=== PATIENT | female | born 1945 | race Caucasian/White ===

== ENCOUNTER 2017-01-06 12:08 | Inpatient (IN) ==
[2017-01-06] MEDS ORDERED: SODIUM CHLORIDE 0.9% 1,000 ML IV STA (12:45)
[2017-01-06 12:50] LABS: Basophils % 0.3 % (0.0-0.8); Eosinophils # 0.1 10*3/uL (0.0-0.87); Eosinophils % 0.4 % (0.00-10.9); Hematocrit 29.6 VOL% (35.7-47.0); Hemoglobin 9.8 GM/DL (12.0-16.0); Immature Granulocytes % 0.3 %; Immature Granulocytes Absolute 0.03 #; Lymphocytes # 1.1 10*3/uL (1.4-4.0); Lymphocytes % 9.3 % (21.3-54.2); Mean Corpuscular HGB Conc 33.1 GM/DL (32-36); Mean Corpuscular Hemoglobin 31 PG (27-34); Mean Corpuscular Volume 92.2 FL (87-102); Mean Platelet Volume 13.4 FL (9.6-12.0); Monocytes # 1.3 10*3/uL (0.11-0.8); Monocytes % 11.8 % (1.7-12.7); Neutrophils # 8.9 10*3/uL (1.4-7.4); Neutrophils % 77.9 % (38.7-73.9); Platelet Count 115 T/CUMM (130-400); Red Blood Count 3.21 MC/CUMM (3.8-5.5); Red Cell Distribution Width 16.9 % (9.3-17.3); White Blood Count 11.4 T/CUMM (4-12)
--- NOTE | 2017-01-06 12:50 | Emergency Department Note ---
Nabor Meredith Mantricia, am scribing for, and in the presence of, James Flowers MD 12:47. Kristie Meredith James D, MD, personally performed the services described in this documentation, ascribed by Katelyn Tomlin in my presence, and it is both accurate and complete . Arrival - Arrival Chief Complaint: Weakness Stated Complaint: Weakness ED Nursing Triage Note: EMS was called for lifting help. Pt fell due to weakness. EMS reported initially hypotensive but responded with 700ml of NS. According to pt has not been eating and has been wearing prn O2 of 4L @ home constantly. FSG 116. Mode of Arrival: Stretcher Limitations: No Limitations Source: Patient - History of Present Illness HPI Narrative: Pt is a 71 y/o white female arriving to ED by EMS with c/o generalized weakness that onset today. Due to pt's weakness, she fell today trying to get out of bed. Pt denies any injuries or pain anywhere. Initially pt was also hypotensive but she was given 700ml of NS per EMS. Pt reports poor PO intake because she states that "the food does not go down." Pt is currently on prn O2 of 4L at home and when asked, she does not know why she is on home O2. Pt seems to be confused and is not aware what month it is; she responds with March. No other complaints were reported to ED. Onset (ago): hour(s) Consistency: constant Severity: mild Allergies/Adverse Reactions: Allergies Allergy/AdvReac Type Severity Reaction Status Date / Time morphine Allergy UNCONSCIOUS Verified 05/05/15 21:18 Home Medications: Home Medications Medication Instructions Recorded Confirmed Type Amitriptyline [Elavil] 100 mg PO BEDTIME 05/05/15 05/05/15 History Aspirin [Ecotrin] 81 mg PO DAILY 05/05/15 05/05/15 History Budesonide [Budesonide Neb] 1 mg RESP TX DAILY 05/05/15 05/05/15 History Enalapril Maleate 2.5 mg PO DAILY 05/05/15 05/05/15 History Tacrolimus Cap [Prograf Cap] 1 mg PO DAILY 05/05/15 05/05/15 History Acetaminophen Tab [Tylenol Tab] 650 mg PO BID #14 tablet 05/07/15 Rx Budesonide Neb [Pulmicort Respules] 0.5 mg RESP TX RT BID nebulizer 05/07/15 Rx solution traMADol TAB [Ultram] 50 mg PO BID #14 tablet 05/07/15 Rx HYDROcodone/ACETAMIN 7.5-325 1 tablet PO Q6H PRN #20 tablet 11/23/16 Rx [[place] 7.5-325] Review of System - Review of System 12 point system: reviewed and no additional remarkable complaints except as stated - Review of System Constitutional: Present: weakness Eyes: Absent: pain Head/Ears/Nose/Throat: Absent: earache Respiratory: Absent: cough Cardiovascular: Absent: chest pain, palpitations Gastrointestinal: Absent: abdominal pain, nausea, vomiting, diarrhea Genitourinary female: Absent: abnormal menses Musculoskeletal: Absent: arm pain, back pain, leg pain, neck pain Medical,Surgical,& Family Hx - Medical History Neurology: History of: Migraine (BOTOX INJECTIONS) HEENT: History of: Eye Problem (MACULAR DEGENERATION) Respiratory: History of: Asthma, COPD Renal: History of: Renal Problems (STAGE 3 KIDNEY DISEASE) Gastrointestinal: History of: Liver Problems (LIVER TRANSPLANT 1997) - Surgical History Thoracic Surgeries: Surgical HX of;: Organ Transplant (LIVER 1997) Neurologic Surgeries: Surgical HX of: Neurologic Surgery (STENT IN BRAIN) Abdominal Surgeries: Surgical HX of: Cholecystectomy - Family History Family History: Reports;: Family Heart Disease - Social History Smoking Status: Never smoker Frequency of Alcohol Use: None Type of Drug Use: None Exam Physical Examination: ADULT: GENERAL: This is a well-nourished, well-developed chronically ill-appearing white female in no apparent distress. VITAL SIGNS: Reviewed HEENT: Head is normocephalic and atraumatic. Pupils are equally round and reactive to light. Extraocular movement are intact. Oropharynx is benign with moist mucous membranes. NECK: Neck is soft and supple without tenderness. There are no masses. There is no lymphadenopathy. LUNGS: Lungs are clear to auscultation bilaterally. Chest rises symmetrically. There is no chest wall tenderness. CV: Heart is regular rate and rhythm without murmurs, rubs, or gallops. ABDOMEN: Abdomen is soft, non-tender to palpation. There are no abnormal masses palpated. There is no organomegaly. Bowel sounds are present and active. SKIN: Skin is warm and dry. No rash. EXTREMITIES: Patient has full range of motion without tenderness. There is no pedal edema. NEUROLOGIC: Awake, alert, and disoriented to time. Cranial nerves II through XII are grossly intact. Motor is 3/5 in all extremities. PSYCHIATRIC: Normal affect. Normal mood. Vital Signs: Vital Signs Temperature 98.4 F 01/06/17 12:08 Pulse Rate 86 01/06/17 12:08 Respiratory Rate 16 01/06/17 12:08 Blood Pressure 106/31 01/06/17 12:08 O2 Sat by Pulse Oximetry 96 01/06/17 12:08 Course - Consultations Consultation #1: Discussed with hospitalist. Patient will be admitted to their service. Time: 14:23 Procedures - ABG Interpretation ABG Interpretation 1 Interpretation: abnormal, metabolic acidosis Results - Labs CBC & BMP: 01/06/17 12:30 01/06/17 12:30 Lab Results: I have reviewed the patients labs Labs: Laboratory Tests 01/06/17 12:45 ABG pH 7.290 L ABG pCO2 32.3 L ABG pO2 109.0 H ABG HCO3 16.3 L ABG Total CO2 14.4 L ABG O2 Saturation 98.1 ABG Base Excess -10.2 L FiO2 28.00 - Diagnostic Findings Procedure: Chest x-ray: image reviewed by me, report reviewed by me (Right lower lobe infiltrate versus atelectasis.) Disposition Clinical Impression: Generalized weakness, Fall at home, Altered mental status, Right lower lobe infiltrate, Renal failure Case discussed with: patient Disposition: Still a Patient Condition: Stable Time of Disposition: 14:22
[2017-01-06 12:54] LABS: Allen Test Positive
[2017-01-06 12:55] LABS: ABG Base Excess -10.2 MMOL/L (-2.5-2.5); ABG HCO3 16.3 MMOL/L (20-26); ABG Oxygen Saturation 98.1 % (95-100); ABG PCO2 32.3 MM HG (35-48); ABG TCO2 14.4 MMOL/L (23-27)
--- NOTE | 2017-01-06 13:02 | CT Report ---
CT brain Indication: Altered mental status Comparison: 18 Oct 2013 Technique: Axial CT imaging of the brain is performed without contrast with 3 mm increments. Findings: No evidence of hemorrhage, mass mass effect midline shift or acute infarct seen. There is moderate diffuse cerebral atrophy. There are faint areas of decreased density seen within the white matter. Otherwise the brain parenchyma attenuation and differentiation appears within normal limits. Subarachnoid of shunt is present, stable in appearance. The ventricles and cisterns are normal in caliber. No cranial or skull base abnormality is identified. Impression: No evidence of acute process or interval change. This CT exam was performed using one or more the following dose reduction techniques: Automated exposure control, adjustment of the MA and/or KV according to patient size, or use of iterative reconstruction technique. PROCEDURE INTERPRETED AT [facility] DEPARTMENT OF RADIOLOGY Final Report Signed by: Dr. Abhijit Mayes
[2017-01-06 13:05] LABS: Calcium 8.4 MG/DL (8.5-10.1); Magnesium 2.3 MG/DL (1.8-2.4); Osmolality,Calculated 297.5 MOS/KG (273-304)
--- NOTE | 2017-01-06 13:05 | XRay Report ---
XR chest 2V Indication: Chronic respiratory failure, hypoxemia Comparison: 05 May 2015 Findings: The heart and mediastinum are normal in size and configuration. The pulmonary vascularity is normal in caliber. There is increased right lower lung density present. No other lung infiltrates, effusions, pneumothorax or other abnormality is demonstrated. Impression: Increased right lower lung density, could indicate infiltrates versus atelectasis. PROCEDURE INTERPRETED AT [facility] DEPARTMENT OF RADIOLOGY Final Report Signed by: Dr. Abhijit Mayes
[2017-01-06 13:08] LABS: Albumin 2.2 G/DL (3.4-5.0); Bilirubin,Total 0.8 MG/DL (0.2-1.0); Calcium 8.7 MG/DL (8.5-10.1); Osmolality,Calculated 297.5 MOS/KG (273-304); Total Protein 5.6 G/DL (6.4-8.3)
[2017-01-06 13:42] LABS: Amorphous Crystals,Urine Occasional /HPF (Few); Apearance,Urine CLOUDY (Clear); Bilirubin,Urine Negative (Negative); Blood, Urine Small mg/dL (Negative); Glucose,Urine (UA) Negative (Negative); Ketones,Urine Negative (Negative); Nitrite,Urine Negative (Negative); Protein,Urine Negative; RBC,Urine 1 /HPF (0-4); Squamous Epithelial Cell,Urine Occasional /HPF (0-10); Urine Color Amber (Yellow); Urine Specific Gravity 1.013 (1.001-1.035); Urine Urobilinogen < 2.0 EU/DL (0.2-1.0); WBC,Urine 2 /HPF (0-6)
[2017-01-06] MEDS ORDERED: LEVOFLOXACIN INJ 500 MG in PREMIX 1 EACH IV STA (14:23)
[2017-01-06] MEDS ORDERED: LEVOFLOXACIN INJ 100 ML IV ONE (14:53)
[2017-01-06] MEDS ORDERED: ALBUTEROL 2.5 MG/3 ML NEB RESP TX PRN (15:58)
[2017-01-06] MEDS ORDERED: ONDANSETRON 4 MG/2 ML VIAL IV PRN (15:58)
[2017-01-06] MEDS ORDERED: SODIUM CHLORIDE 0.9% 3,400 ML IV ONE (16:05)
--- NOTE | 2017-01-06 16:25 | Hospitalist History & Physical ---
Assessment and Plan (1) Altered mental status Status: Acute Assessment and plan: At the time of presentation, the patient was experiencing bouts of intermittent confusion. Her speech was clear and appropriate however she found difficulty answering questions at times. The is adamant that this is not the patient's baseline. CT of the head was essentially unremarkable; however the patient's ammonia level was noted at 39. This indeed may be the source of the patient's altered mental status in addition to the current state of metabolic disarrangement. We will monitor closely. Recheck ammonia level in a.m. Current Visit: Yes Qualifiers: Altered mental status type: unspecified Qualified Code(s): R41.82 - Altered mental status, unspecified (2) Fall at home Status: Acute Assessment and plan: The patient is obviously weak at the time of presentation. reported a decrease in the patient's p.o. intake in recent weeks; which is largely a contributing factor related to the patient's fall. We will consult physical and Occupational Therapy to evaluate and treat during the clinical encounter. Current Visit: Yes (3) Chronic renal failure, stage 3 (moderate) Status: Acute Assessment and plan: BUN and creatinine were grossly elevated at 72/4.20; GFR 13. Upon review of the patient's previous medical record, the patient's BUN and creatinine was noted at 29/1.30; GFR 51 on November 23, 2016. This may be largely in part to the patient's decrease in p.o. intake or could possibly be attributed to the recent increase in the patient's CellCept dose. We will gently rehydrate and recheck labs in a.m. If no improvement in renal function, we will consult nephrology to evaluate. Current Visit: No History of Present Illness Chief complaint: Weakness History of present illness: This is a chronically ill 71-year-old female that presented to the ED this afternoon at [facility] via EMS for evaluation of weakness. The patient has a long and complex medical history significant for: Macular degeneration, asthma, chronic obstructive pulmonary disease, chronic kidney disease stage III, and liver failure. Patient has surgical history significant for liver transplantation(1987), cholecystectomy, intracranial stent placement. The patient reported the onset of symptoms earlier this morning. The patient reports that she failed attempted to get out of bed. She was alone at home with her who was unable to assist her up. Her called for emergency assistance. At the time of EMS arrival, the patient was assessed and was found to be hypotensive. The patient was given 700 mL of normal saline in the field and transported to [facility] for further evaluation. The patient was assessed at the time of ED presentation. Upon further interview , the patient's reported that the patient has a a decrease in her p.o. intake in recent days. In addition, the patient is generally followed by a guard entrance registrar at [facility] in [place] who manages and monitors the patient's liver function. She reports that her medications were recently adjusted on last month. Labs were obtained; complete blood count reported white blood cell count of 11.4, hemoglobin 9.8, hematocrit 29.6, platelet count 115. Basic metabolic profile reported sodium 139, potassium 5.0, chloride 111, carbon dioxide 18, BUN 72, creatinine 4.20, calcium 8.7, magnesium 2.3, total bilirubin 0.80, AST 34, ALT 16, alkaline phosphatase 110, ammonia 39, albumin 2.2 and glucose at 94. Arterial blood gas reported pH at 7.290, PCO2 32.3, PO2 109, HCO3 16.3. Chest x-ray reported increased right lower lobe density which could indicate infiltrate versus atelectasis. CT head was essentially unremarkable. After brief discussion with both Dr. Flowers and Dr. Sagastume, the patient will be admitted to the hospitalist service for continuation of care. Due to the complexity of the patient's presenting symptoms and comorbidities, the patient will be placed in the critical care setting for close observation. Gastroenterology has been notified of the patient's arrival; Dr. Sagastume has spoken with Dr. Naqvi the patient is known to him. Dr. Naqvi has agreed to assist during the clinical encounter. Home medications have been reviewed and reconciled CODE STATUS discussed; patient is a FULL CODE. Home Medications Medication Instructions Recorded Confirmed Type Amitriptyline [Elavil] 100 mg PO QPM 05/05/15 01/06/17 History Aspirin [Ecotrin] 81 mg PO QAM 05/05/15 01/06/17 History Enalapril Maleate 2.5 mg PO QPM 05/05/15 01/06/17 History Tacrolimus Cap [Prograf Cap] 1 mg PO MOWEFR 05/05/15 01/06/17 History Budesonide Neb [Pulmicort Respules] 0.5 mg RESP TX RT BID nebulizer 05/07/15 Rx solution Albuterol Sulfate [Proair HFA] 2 puff INH Q4H PRN 01/06/17 01/06/17 History Albuterol/Ipratropium Neb [Duoneb] 3 ml RESP TX RT Q6H PRN 01/06/17 01/06/17 History Arformoterol Neb [Brovana] 15 mcg RESP TX RT BID 01/06/17 01/06/17 History Ergocalciferol (Vitamin D2) 50,000 unit PO Q3D 01/06/17 01/06/17 History [Vitamin D2] Furosemide Tab [Lasix Tab] 40 mg PO QPM 01/06/17 01/06/17 History Mycophenolate Mofetil Cap 500 mg PO BID 01/06/17 01/06/17 History [Cellcept] Allergies Allergy/AdvReac Type Severity Reaction Status Date / Time morphine Allergy UNCONSCIOUS Verified 05/05/15 21:18 Medical,Surgical,& Family Hx - Medical History Neurology: History of: Migraine (BOTOX INJECTIONS) HEENT: History of: Eye Problem (MACULAR DEGENERATION) Respiratory: History of: Asthma, COPD Renal: History of: Renal Problems (STAGE 3 KIDNEY DISEASE) Gastrointestinal: History of: Liver Problems (LIVER TRANSPLANT 1997) - Surgical History Thoracic Surgeries: Surgical HX of;: Organ Transplant (LIVER 1997) Neurologic Surgeries: Surgical HX of: Neurologic Surgery (STENT IN BRAIN) Abdominal Surgeries: Surgical HX of: Cholecystectomy - Family History Family History: Reports;: Family Heart Disease - Social History Smoking Status: Never smoker Frequency of Alcohol Use: None Type of Drug Use: None 12 point system: reviewed and no additional remarkable complaints except as stated Exam - Constitutional Vitals: Period Temp Pulse Resp BP Sys/Hallman Pulse Ox Last 24 Hr 98.4 F-98.4 F 86-92 16-21 89-118/31-79 96-100 General appearance: normal weight, mild distress - Head Head exam: Present: normal inspection, normocephalic - Eye Eye exam: Present: EOMI. Absent: conjunctival injection Pupils: Present: IRAM, normal accommodation. Absent: constricted - ENT ENT exam: Present: normal exam, normal external ear exam, normal oropharynx - Neck Neck exam: Absent: normal inspection, lymphadenopathy, meningismus, tenderness, thyromegaly - Respiratory Respiratory exam: Present: decreased breath sounds (Right side slightly diminished upon auscultation). Absent: rales, rhonchi, stridor, wheezes - Cardiovascular Cardiovascular exam: Present: bradycardia, regular rate and rhythm. Absent: carotid bruit, diastolic murmur, gallop, JVD, rubs, systolic murmur - GI/Abdominal GI/Abdominal exam: Present: normal bowel sounds, soft - Extremities Exam Extremities exam: Present: normal inspection, normal capillary refill, full ROM. Absent: edema - Back Exam Back exam: Present: normal inspection - Neurological Exam Neurological exam: Present: alert (Episodes of intermittent confusion noted however easily redirectable) - Psychiatric Psychiatric exam: Present: normal affect, normal mood - Skin Skin exam: Present: normal color, warm Results - Labs CBC & BMP: 01/06/17 12:30 01/06/17 12:30 Lab Results: I have reviewed the past 24 hour labs
[2017-01-06] MEDS ORDERED: VANCOMYCIN INJ 1,500 MG in SODIUM CHLORIDE 0.9% 500 ML IV ONE (18:00)
--- NOTE | 2017-01-06 19:00 | Event Note ---
Patient seen with history obtained from her and also patient's who is at bedside. Full consult follow tomorrow. 71-year-old female known to me with remote orthotopic liver transplant at [facility] around 20 years ago. She is admitted with marked weakness and increased shortness of breath with right lower lobe pneumonia. Her liver function appears normal other than albumin 2.2. Patient' s creatinine is 4.2, up from 3.[address] [facility] with Dr. Cool her transplant news clerk. Her Prograf dose had been decreased to 3 times a week from 1 mg daily due to renal dysfunction and CellCept was added. relates that she has had poor oral intake for the last few months. She had been hospitalized in [place] couple months ago with weakness and confusion with us not having those records as yet. Her also states that she has had difficulty swallowing solids recently. Would continue immunosuppressive therapy for her doses transplanted liver at current doses. Her nutritional status will need to be addressed and she may require nasogastric tube feeding. She probably will need EGD also at some point to evaluate her solid food dysphagia after pneumonia has cleared.
[2017-01-06] MEDS: ARFORMOTEROL 15 MCG/2 ML NEB RESP TX SCH (19:01)
[2017-01-06] MEDS: ALBUTEROL/IPRATROPIUM 3 ML NEB RESP TX SCH (19:01)
[2017-01-06] MEDS: BUDESONIDE 0.5 MG/2 ML NEB RESP TX SCH (19:01)
[2017-01-06] MEDS: SODIUM CHLORIDE 0.9% 1,000 ML IV SCH (19:15)
[2017-01-06] MEDS: PANTOPRAZOLE 40 MG VIAL IV SCH (19:16)
[2017-01-06] MEDS: MEROPENEM 500 MG in SODIUM CHLORIDE 0.9% 100 ML IV SCH (19:23)
[2017-01-06 20:01] LABS: INR 1.6; PT Patient Result 16.9 SECS; Partial Thromboplastin Time 34.9 SECS (0-40)
[2017-01-06] MEDS ORDERED: SODIUM CHLORIDE 0.9% 500 ML IV ONE (21:22)
[2017-01-06] MEDS: MYCOPHENOLATE MOFETIL 250 MG CAPSULE PO SCH (21:53)
[2017-01-06] MEDS: LACTULOSE 20 GM/30 ML UDCUP PO SCH (21:56)
[2017-01-06 22:39] LABS: CKMB % 1.5 %
[2017-01-06 22:42] LABS: Troponin I Only 0.063 NG/ML (0.00-0.045)
[2017-01-07] MEDS: ALBUTEROL/IPRATROPIUM 3 ML NEB RESP TX SCH ×4 (00:48→19:16)
[2017-01-07] MEDS ORDERED: SODIUM CHLORIDE 0.9% 500 ML IV ONE (02:18)
--- NOTE | 2017-01-07 02:20 | EKG Report ---
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
[2017-01-07] MEDS: NOREPINEPHRINE 8 MG in SODIUM CHLORIDE 0.9% 242 ML IV SCH (03:00)
[2017-01-07 03:20] LABS: Allen Test Positive; Pt O2 Delivery Device Room Air
[2017-01-07 03:22] LABS: ABG Base Excess -11.9 MMOL/L (-2.5-2.5); ABG HCO3 14.3 MMOL/L (20-26); ABG Oxygen Saturation 91.6 % (95-100); ABG PCO2 33.6 MM HG (35-48); ABG PH 7.247 (7.35-7.45); ABG TCO2 15.3 MMOL/L (23-27)
[2017-01-07 05:26] LABS: Bilirubin,Total 1.2 MG/DL (0.2-1.0); Calcium 8.7 MG/DL (8.5-10.1); Osmolality,Calculated 298.4 MOS/KG (273-304); Potassium 5.6 MMOL/L (3.5-5.1); Total Protein 5.7 G/DL (6.4-8.3)
[2017-01-07] MEDS: MEROPENEM 500 MG in SODIUM CHLORIDE 0.9% 100 ML IV SCH ×2 (05:44→17:38)
--- NOTE | 2017-01-07 06:24 | EKG Report ---
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
[2017-01-07] MEDS: SODIUM CHLORIDE 0.9% 1,000 ML IV SCH (06:39)
[2017-01-07 06:52] LABS: Basophils % 0.2 % (0.0-0.8); Eosinophils % 0.1 % (0.00-10.9); Hematocrit 28.6 VOL% (35.7-47.0); Hemoglobin 9.5 GM/DL (12.0-16.0); Immature Granulocytes % 0.6 %; Immature Granulocytes Absolute 0.08 #; Lymphocytes # 1.8 10*3/uL (1.4-4.0); Lymphocytes % 12.7 % (21.3-54.2); Mean Corpuscular HGB Conc 33.2 GM/DL (32-36); Mean Corpuscular Hemoglobin 32 PG (27-34); Mean Corpuscular Volume 94.7 FL (87-102); Mean Platelet Volume 12.6 FL (9.6-12.0); Monocytes # 1.8 10*3/uL (0.11-0.8); Monocytes % 12.8 % (1.7-12.7); Neutrophils # 10.5 10*3/uL (1.4-7.4); Neutrophils % 73.6 % (38.7-73.9); Platelet Count 117 T/CUMM (130-400); Red Blood Count 3.02 MC/CUMM (3.8-5.5); Red Cell Distribution Width 17.3 % (9.3-17.3); White Blood Count 14.2 T/CUMM (4-12)
--- NOTE | 2017-01-07 06:54 | XRay Report ---
Exam: XR chest 1V portable Date: 01/07/2017 4:00 AM Indication: Shortness of breath Comparison: 01/06/2017 Technical: AP Findings: A right IJ catheter is this appears to track inferiorly towards the inferior vena cava and coronal back upon itself into the region of the azygous system not otherwise clarified this could be along the chest wall as well could represent a ventriculoperitoneal shunt catheter not otherwise clarified on the AP chest. Low volume effusions are present. Prominent perihilar regions. Mild prominence the cardiac silhouette. External cardiac leads are noted. Impression: 1. Cardiomegaly with bilateral basal effusions and pleural thickening with minimal alveolar edema and shunt vascularity. Suggest cardiac decompensation mild CHF 2. Findings most likely represent a ventriculoperitoneal shunt catheter not otherwise clarified PROCEDURE INTERPRETED AT [facility] DEPARTMENT OF RADIOLOGY Final Report Signed by: Dr. Matthew Henry
[2017-01-07] MEDS ORDERED: VANCOMYCIN INJ 1,500 MG in SODIUM CHLORIDE 0.9% 500 ML IV PRN (07:39)
[2017-01-07] MEDS: BUDESONIDE 0.5 MG/2 ML NEB RESP TX SCH ×2 (07:50→19:16)
[2017-01-07] MEDS: ARFORMOTEROL 15 MCG/2 ML NEB RESP TX SCH ×2 (08:00→19:16)
--- NOTE | 2017-01-07 08:21 | Physician Query Form ---
CLICK EDIT DOCUMENT TO SELECT QUERY ANSWER --> OK --> SIGN Nella Elise RN, CCDS Certified Clinical Cash Applications Specialist W) [phone] (f) [phone] [email or web address] PROVIDERS: Make your selection(s) from the choices in EACH section by typing an "x" and enter comments in the comment section. Please use your independent medical judgment in providing your response. This request does not imply that any particular answer is desired or expected. CLINICAL INDICATORS: (Providers should not edit this section) The medical record indicates that the patient was admitted with pneumonia, encephalopathic, WBC 11.4, normal Lactic acid level, normal temp, pulse of 86 in the ER, Sepsis is mentioned on the . Please clarify which, if any, of the following is the etiology of the above symptoms and treatment rendered: ( x) Sepsis is a confirmed diagnosis (x) Please include indicators: __hypotension, immunosuppressed , hypoxic, encephalopathic ( ) Sepsis is ruled out: ( ) Localized infection only, without systemic illness, please specify infection : ( ) Other condition, please specify: ( ) Clinically unable to determine Criteria for Sepsis (SIRS due to an infection) should be based on 2 or more of the following being present: Temperature > 101F or < 96.8F WBC > 12,000 or < 4,000, or > 10% bands Tachycardia HR > 90 beats/minute Tachypnea RR > 20 breaths/minute or PaCO2 > 32mmHg Lactate level > 2.0 mmol/L (>4 is equivalent to severe sepsis) Altered Mental Status Mottling of skin or prolonged capillary refill Non-diabetic hyperglycemia (blood sugar >120 mg/dl) Other evidence of acute organ failure associated with sepsis ( severe sepsis) COMMENTS: PLEASE ALSO DOCUMENT RESPONSE IN PROGRESS NOTES AND/OR DISCHARGE SUMMARY Use of terms such as suspected, likely, or probable (associated with a specific diagnosis that is being evaluated, monitored, or treated as if it exists) are acceptable and can be restated in the discharge summary if not ruled out. MTDD
[2017-01-07] MEDS: LACTULOSE 20 GM/30 ML UDCUP PO SCH ×3 (09:09→21:33)
[2017-01-07] MEDS: ASPIRIN EC 81 MG TABLET PO SCH (09:09)
[2017-01-07] MEDS: TACROLIMUS 0.5 MG CAPSULE PO SCH (09:09)
[2017-01-07] MEDS: MYCOPHENOLATE MOFETIL 250 MG CAPSULE PO SCH ×2 (09:09→21:33)
[2017-01-07] MEDS: SODIUM BICARB INJ 100 MEQ in DEXTROSE 5% 1,000 ML IV SCH ×2 (09:52→20:43)
--- NOTE | 2017-01-07 10:04 | Gastrointestinal Consult Note ---
Assessment and Plan (1) Altered mental status Status: Acute Assessment and plan: 01/07-Sudden onset of confusion with history of liver disease and transplant 20 years ago. Mildly elevated ammonia level on admission at 39, down to 33, no bowel movements at this time. Reports of recent decline in oral intake over last several days. Reports of vague abdominal pain with eating. Continue to monitor oral intake at this time with consideration for possible tube feedings if necessary. Plan and addendum to follow by Dr Naqvi. Current Visit: Yes Qualifiers: Altered mental status type: unspecified Qualified Code(s): R41.82 - Altered mental status, unspecified History of Present Illness Chief complaint: Altered mental status, hx of liver transplant History of present illness: Ms. Castano is a 71 year old female who was admitted to the hospital on 01/06 with onset of mental status changes. She is a poor historian at this time and family is not present during visit. Pt has a prior history of COPD, CKD and liver failure. She underwent a liver transplant at [facility] 20 years ago. Information is obtained mostly from chart review. Pt is followed at [facility] by Dr Hilliard and noted to see him last week. Pt reportedly was admitted with changes in her baseline mental status on yesterday when she was unable to get up out of bed. EMS was called at that time and she was brought in for further evaluation. She was found to be hypotensive initially in the field and was IV resuscitated prior to arrival. On admission, pt was noted to have encephalopathy and hypoxic with metabolic acidosis as well as RLL pneumonia. Dr hCamberlain has consulted with pt and she has been started on Vancomycin and Merrem. Her ammonia level was at 39 on yesterday down today at 33 however she is not currently having bowel movements with the [place] [address]. Bilirubin 1.2, AST 62, alk phos 118. Albumin 2.0. Creatnine is unchanged today at 4.2. Pt spouse stated on admission that over the last several days, she has had a decrease in her oral intake with not eating or drinking very much. Her weight is noted to be up 15 pounds from last months ER visit at this time. Pt does not complain of any dysphagia currently however noted according to spouse she has had some complaints of this at home. She does states she has some generalized abdominal discomfort when she eats at times however she is somewhat confused when trying to explain her pain. She denies any nausea or vomiting and tolerated her diet this morning. Home Medications Medication Instructions Recorded Confirmed Type Amitriptyline [Elavil] 100 mg PO QPM 05/05/15 01/06/17 History Aspirin [Ecotrin] 81 mg PO QAM 05/05/15 01/06/17 History Enalapril Maleate 2.5 mg PO QPM 05/05/15 01/06/17 History Tacrolimus Cap [Prograf Cap] 1 mg PO MOWEFR 05/05/15 01/06/17 History Budesonide Neb [Pulmicort Respules] 0.5 mg RESP TX RT BID nebulizer 05/07/15 Rx solution Albuterol Sulfate [Proair HFA] 2 puff INH Q4H PRN 01/06/17 01/06/17 History Albuterol/Ipratropium Neb [Duoneb] 3 ml RESP TX RT Q6H PRN 01/06/17 01/06/17 History Arformoterol Neb [Brovana] 15 mcg RESP TX RT BID 01/06/17 01/06/17 History Ergocalciferol (Vitamin D2) 50,000 unit PO Q3D 01/06/17 01/06/17 History [Vitamin D2] Furosemide Tab [Lasix Tab] 40 mg PO QPM 01/06/17 01/06/17 History Mycophenolate Mofetil Cap 500 mg PO BID 01/06/17 01/06/17 History [Cellcept] Allergies Allergy/AdvReac Type Severity Reaction Status Date / Time morphine Allergy UNCONSCIOUS Verified 05/05/15 21:18 Medical,Surgical,& Family Hx - Medical History Neurology: History of: Migraine (BOTOX INJECTIONS) HEENT: History of: Eye Problem (MACULAR DEGENERATION) Respiratory: History of: Asthma, COPD Renal: History of: Renal Problems (STAGE 3 KIDNEY DISEASE) Gastrointestinal: History of: Liver Problems (LIVER TRANSPLANT 1997) - Surgical History Thoracic Surgeries: Surgical HX of;: Organ Transplant (LIVER 1997) Neurologic Surgeries: Surgical HX of: Neurologic Surgery (STENT IN BRAIN) Abdominal Surgeries: Surgical HX of: Cholecystectomy - Family History Family History: Reports;: Family Heart Disease - Social History Smoking Status: Never smoker Frequency of Alcohol Use: None Type of Drug Use: None 12 point system: reviewed and no additional remarkable complaints except as stated - Constitutional Constitutional: Present: as per HPI - EENT Eyes: Present: as per HPI Ears: Present: as per HPI Nose, mouth and throat: Present: as per HPI - Cardiovascular Cardiovascular: Present: as per HPI - Respiratory Respiratory: Present: as per HPI - Gastrointestinal Gastrointestinal: Present: as per HPI, abdominal pain - Genitourinary Genitourinary: Present: as per HPI - Musculoskeletal Musculoskeletal: Present: as per HPI - Neurological Neurological: Present: as per HPI, confusion - Psychiatric Psychiatric: Present: as per HPI - Endocrine Endocrine: Present: as per HPI - Hematologic/Lymphatic Hematologic/Lymphatic: Present: as per HPI Exam - Constitutional Vitals: Period Temp Pulse Resp BP Sys/Hallman Pulse Ox Last 24 Hr 97.9 F-98.7 F 74-104 16-28 78-144/31-83 92-100 General appearance: normal weight, no acute distress - Head Head exam: Present: normal inspection, normocephalic - Eye Eye exam: Present: other (lids and conjunctiva unremarkable). Absent: scleral icterus - ENT ENT exam: Present: normal exam, normal oropharynx - Neck Neck exam: Present: normal inspection - Respiratory Respiratory exam: Present: clear to auscultation bilaterally. Absent: rales, rhonchi, wheezes - Cardiovascular Cardiovascular exam: Present: regular rate and rhythm. Absent: diastolic murmur , JVD, systolic murmur - GI/Abdominal GI/Abdominal exam: Present: normal bowel sounds, soft. Absent: ascites, distended, mass, organomegaly, tenderness - Extremities Exam Extremities exam: Present: normal inspection, full ROM - Back Exam Back exam: Present: normal inspection - Neurological Exam Neurological exam: Present: alert, oriented X3 - Psychiatric Psychiatric exam: Present: normal affect, normal mood - Skin Skin exam: Present: normal color, warm, dry Results - Labs CBC & BMP: 01/07/17 03:42 01/07/17 03:42 Lab Results: I have reviewed the past 24 hour labs Quality Measures - VTE Contraindication to Pharmacological VTE Prophylaxis: Thrombocytopenia
--- NOTE | 2017-01-07 10:40 | Hospitalist Progress Note ---
Assessment and Plan (1) Right lower lobe pneumonia Status: Acute Assessment and plan: 1)RLL pneumonia- on vanc and merrem. Sats good and breathing comfortably. 2)sepsis- received IVF and BP ok on small amount of levophed. wean levophed off. BCx negative so far. 3)ALI on CKD stage 3- last outpatient creatinine was 3.3. 4)s/p liver failure with subsequent tranplant- may be develoing cirrhosis in new liver. ammonia remains mildly elevated. She is on lactulose. Her sensorium is clearer this morning. INR 1.6. On immunosuppressants as she was prior to admission. Dr Naqvi following. 5)fall at home- weak. 6)metabolic acidosis- adding bicarb to IVF, recheck BMP at 3pm. 7)COPD- compensated. Current Visit: Yes (2) History of liver transplant Status: Acute Current Visit: No (3) Chronic renal failure, stage 3 (moderate) Status: Acute Current Visit: No (4) Generalized weakness Status: Acute Current Visit: Yes (5) Fall at home Status: Acute Current Visit: Yes (6) Altered mental status Status: Acute Current Visit: Yes Qualifiers: Altered mental status type: unspecified Qualified Code(s): R41.82 - Altered mental status, unspecified (7) Renal failure Status: Acute Current Visit: Yes Hospitalist: Subjective Interval history: Mrs Castano did well last night she reports. Her BP dropped a bit and she was given about 2 more liters of IVF for total of 3.7 liters. levophed was started at 5mcg and has stayed at that rate with BP 116/80 this morning. She denies pain or shortness of breath at rest. No cough. ID to see today. Exam - Constitutional Vitals: Period Temp Pulse Resp BP Sys/Hallman Pulse Ox Last 24 Hr 97.8 F-98.7 F 74-104 16-28 78-144/31-83 92-100 General appearance: no acute distress, morbidly obese - Eye Eye exam: Present: EOMI. Absent: scleral icterus Pupils: Present: IRAM - Respiratory Respiratory exam: Present: rales (and decreased breath sounds at right base.). Absent: rhonchi, wheezes - Cardiovascular Cardiovascular exam: Present: regular rate and rhythm - GI/Abdominal GI/Abdominal exam: Present: normal bowel sounds, soft. Absent: tenderness - Extremities Exam Extremities exam: Present: edema (3+pitting edema bilateral LE) - Neurological Exam Neurological exam: Present: alert, oriented X3, CN II-XII intact. Absent: motor sensory deficit Results - Labs CBC & BMP: 01/07/17 03:42 01/07/17 03:42 Lab Results: I have reviewed the past 24 hour labs Quality Measures - VTE Contraindication to Pharmacological VTE Prophylaxis: Thrombocytopenia
--- NOTE | 2017-01-07 10:49 | Infectious Disease Consult ---
History of Present Illness Chief complaint: Sepsis History of present illness: History obtained from patient but mainly from the chart as she could not remember many details. Ms. Castano is a 71 year old female who had liver transplant about 19yrs ago and has been doing relatively well until a few mths ago when she became anorexic and has been falling frequently. She was brought to hospital yesterday after a fall when she was found confused. She was hypotensive and tachycardic though not febrile. She required multiple boluses of IV fluids blood pressure remained low after she came to the ICU so she was started on vasopressors. There was concern that she was septic so I am asked to assist with management. Patient denies cough, shortness of breath, vomiting and diarrhea but she has had abdominal pain is noticed and anorexia. No irritative urinary symptoms. No recent travel, she does not have any pets. No ill contacts. She lives at home with her . IMPRESSION: 1. RLL PNA - based on CXR appearance though she does not have significant pulmonary symptoms 2. Septic shock, due to #1. Is a possibility of bloodstream infection and blood cultures are pending. 3. Status post liver transplant almost 2 decades ago 4. Immunocompromise state due to #3 above 5. Acute renal failure, most likely due to persistent hypotension from septic shock RECOMMENDATIONS: 1. Continue meropenem 2. Would also continue vancomycin, next dose to be given when serum level gets below 20. Pharmacy has ordered random level for tomorrow morning. I am continuing vancomycin because her renal function has not worsened since it was started yesterday. Will stop if no resistant gram positives isolated in the cultures. 3. Would continue levofloxacin, therefore resume at 500 mg every 48 hours 4. Follow-up results of pending cultures and adjust antibiotics accordingly Thank you very much for the consult. Will follow. Home Medications Medication Instructions Recorded Confirmed Type Amitriptyline [Elavil] 100 mg PO QPM 05/05/15 01/06/17 History Aspirin [Ecotrin] 81 mg PO QAM 05/05/15 01/06/17 History Enalapril Maleate 2.5 mg PO QPM 05/05/15 01/06/17 History Tacrolimus Cap [Prograf Cap] 1 mg PO MOWEFR 05/05/15 01/06/17 History Budesonide Neb [Pulmicort Respules] 0.5 mg RESP TX RT BID nebulizer 05/07/15 Rx solution Albuterol Sulfate [Proair HFA] 2 puff INH Q4H PRN 01/06/17 01/06/17 History Albuterol/Ipratropium Neb [Duoneb] 3 ml RESP TX RT Q6H PRN 01/06/17 01/06/17 History Arformoterol Neb [Brovana] 15 mcg RESP TX RT BID 01/06/17 01/06/17 History Ergocalciferol (Vitamin D2) 50,000 unit PO Q3D 01/06/17 01/06/17 History [Vitamin D2] Furosemide Tab [Lasix Tab] 40 mg PO QPM 01/06/17 01/06/17 History Mycophenolate Mofetil Cap 500 mg PO BID 01/06/17 01/06/17 History [Cellcept] Allergies Allergy/AdvReac Type Severity Reaction Status Date / Time morphine Allergy UNCONSCIOUS Verified 05/05/15 21:18 12 point system: reviewed and no additional remarkable complaints except as stated (per HPI) Medical,Surgical,& Family Hx - Medical History Neurology: History of: Migraine (BOTOX INJECTIONS) HEENT: History of: Eye Problem (MACULAR DEGENERATION) Respiratory: History of: Asthma, COPD Renal: History of: Renal Problems (STAGE 3 KIDNEY DISEASE) Gastrointestinal: History of: Liver Problems (LIVER TRANSPLANT 1997) - Surgical History Thoracic Surgeries: Surgical HX of;: Organ Transplant (LIVER 1997) Neurologic Surgeries: Surgical HX of: Neurologic Surgery (STENT IN BRAIN) Abdominal Surgeries: Surgical HX of: Cholecystectomy - Family History Family History: Reports;: Family Heart Disease - Social History Smoking Status: Never smoker Frequency of Alcohol Use: None Type of Drug Use: None Infectious Disease Exam H&P - Constitutional Vitals: Vital Signs Temp Pulse Resp BP Pulse Ox 97.8 F 94 H 20 120/70 94 L 01/07/17 08:00 01/07/17 09:00 01/07/17 09:00 01/07/17 09:45 01/07/17 09:00 Intake and Output 01/06/17 01/07/17 01/07/17 23:59 07:59 15:59 Intake Total 200 / 200 2690 / 2690 400 / 400 Output Total 235 / 235 120 / 120 10 Balance -35 / -35 2570 / 2570 390 / 390 Intake: IV 200 / 200 2600 / 2600 300 / 300 Levaquin Inj 500 mg In 100 / 100 Premix 1 Each @ 100 mls/ hr IV 1X ED STA Rx#: [id number] Merrem 500 mg In Ns 100 100 / 100 100 / 100 ml @ 200 mls/hr IV Q12H GENEVA Rx#:[id number] Ns 1,000 ml @ 100 mls/hr 2000 / 2000 300 / 300 IV .Q10H GENEVA Rx#: [id number] Vancomycin Inj 1,000 mg 500 / 500 In Ns 500 ml @ 250 mls/hr IV ONCE ONE Rx#: [id number] Oral 50 / 50 100 / 100 Urinary Catheter Flush 40 / 40 Output: Urine 235 / 235 120 / 120 10 / 10 Other: Voiding Method Indwelling Catheter Indwelling Catheter # Bowel Movements 0 Weight 112.661 kg 117.027 kg Patient Weight 01/07/17 23:59 Weight 117.027 kg Exam: General: Patient appeared a bit malaised but was conversant, though unclear with details at times HEENT: Mucous membranes pink and moist, anicteric acyanotic, IRAM, no oral exudates Neck: Supple, no thyroid gland enlargement Respiratory system: Breath sounds vesicular, no crepitations or wheezes Cardiovascular: Normal S1 and S2, no murmurs appreciated Abdomen: Distended especially in epigastric area, large transplant scar noted horizontally across abd, normal bowel sounds, soft, mildly tender across upper abd in region of distention, possible mass in RUQ but difficult to clearly define due to obesity Genitourinary: No suprapubic pain or bladder distention, clear urine from Hoang catheter Extremities: mild bilateral LE edema Skin: No rash Reports - Labs CBC & BMP: 01/07/17 03:42 01/07/17 03:42 Labs: Laboratory Results - last 24 hr 01/06/17 01/06/17 01/06/17 12:30 12:30 12:30 WBC 11.4 RBC 3.21 L Hgb 9.8 L Hct 29.6 L MCV 92.2 MCH 31 MCHC 33.1 RDW 16.9 Plt Count 115 L MPV 13.4 H Neut % (Auto) 77.9 H Lymph % (Auto) 9.3 L Coles % (Auto) 11.8 Eos % (Auto) 0.4 Baso % (Auto) 0.3 Neut # (Auto) 8.9 H Lymph # (Auto) 1.1 L Coles # (Auto) 1.3 H Eos # (Auto) 0.1 Baso # (Auto) 0.0 Immature Gran % 0.3 Nucleated RBC % 0.0 Immature Gran # 0.03 Nucleated RBCs # 0.00 Immature Plt Fraction 0.0 INR PT Patient/Control Mix Fibrinogen Circ Anticoag PTT Plt Func Screen - ADP Plt Func Scrn - Epineph ABG pH ABG pCO2 ABG pO2 ABG HCO3 ABG Total CO2 ABG O2 Saturation ABG Base Excess FiO2 Sodium 139 139 Potassium 5.0 5.0 Chloride 110 H 111 H Carbon Dioxide 17 L 18 L Anion Gap 17.0 H 15.0 BUN 70 H 72 H Creatinine 4.30 H 4.20 H GFR Calculation 12 13 BUN/Creatinine Ratio 16.00 17.00 Glucose 93 94 Hemoglobin A1c Calculated Osmolality 297.5 297.5 Lactic Acid Calcium 8.4 L 8.7 Magnesium 2.3 Total Bilirubin 0.80 AST 34 ALT 16 Alkaline Phosphatase 110 Ammonia 39 H Total Creatine Kinase CK-MB (CK-2) CK and CKMB Interp Troponin I Total Protein 5.6 L Albumin 2.2 L Globulin 3.4 Albumin/Globulin Ratio 0.6 L Urine Color Urine Appearance Urine pH Ur Specific Orla Urine Protein Urine Glucose (UA) Urine Ketones Urine Blood Urine Nitrate Urine Bilirubin Urine Urobilinogen Urine Leukocytes Urine RBC Urine WBC Ur Squamous Epith Cells Amorphous Crystals Ur Culture Indicated? 01/06/17 01/06/17 01/06/17 12:30 12:36 12:45 WBC RBC Hgb Hct MCV MCH MCHC RDW Plt Count MPV Neut % (Auto) Lymph % (Auto) Coles % (Auto) Eos % (Auto) Baso % (Auto) Neut # (Auto) Lymph # (Auto) Coles # (Auto) Eos # (Auto) Baso # (Auto) Immature Gran % Nucleated RBC % Immature Gran # Nucleated RBCs # Immature Plt Fraction INR PT Patient/Control Mix Fibrinogen Circ Anticoag PTT Plt Func Screen - ADP Plt Func Scrn - Epineph ABG pH 7.290 L ABG pCO2 32.3 L ABG pO2 109.0 H ABG HCO3 16.3 L ABG Total CO2 14.4 L ABG O2 Saturation 98.1 ABG Base Excess -10.2 L FiO2 28.00 Sodium Potassium Chloride Carbon Dioxide Anion Gap BUN Creatinine GFR Calculation BUN/Creatinine Ratio Glucose Hemoglobin A1c 4.9 Calculated Osmolality Lactic Acid Calcium Magnesium Total Bilirubin AST ALT Alkaline Phosphatase Ammonia Total Creatine Kinase CK-MB (CK-2) CK and CKMB Interp Troponin I Total Protein Albumin Globulin Albumin/Globulin Ratio Urine Color Rica Urine Appearance Cloudy Urine pH 5.0 Ur Specific Orla 1.013 Urine Protein Negative Urine Glucose (UA) Negative Urine Ketones Negative Urine Blood Small Urine Nitrate Negative Urine Bilirubin Negative Urine Urobilinogen < 2.0 H Urine Leukocytes Negative Urine RBC 1 Urine WBC 2 Ur Squamous Epith Cells Occasional Amorphous Crystals Occasional Ur Culture Indicated? Not indicated 01/06/17 01/06/17 01/06/17 15:07 18:43 18:44 WBC RBC Hgb Hct MCV MCH MCHC RDW Plt Count 109 L MPV Neut % (Auto) Lymph % (Auto) Coles % (Auto) Eos % (Auto) Baso % (Auto) Neut # (Auto) Lymph # (Auto) Coles # (Auto) Eos # (Auto) Baso # (Auto) Immature Gran % Nucleated RBC % Immature Gran # Nucleated RBCs # Immature Plt Fraction INR PT Patient/Control Mix Fibrinogen Circ Anticoag PTT Plt Func Screen - ADP Plt Func Scrn - Epineph ABG pH ABG pCO2 ABG pO2 ABG HCO3 ABG Total CO2 ABG O2 Saturation ABG Base Excess FiO2 Sodium Potassium Chloride Carbon Dioxide Anion Gap BUN Creatinine GFR Calculation BUN/Creatinine Ratio Glucose Hemoglobin A1c Calculated Osmolality Lactic Acid 1.5 1.6 Calcium Magnesium Total Bilirubin AST ALT Alkaline Phosphatase Ammonia Total Creatine Kinase CK-MB (CK-2) CK and CKMB Interp Troponin I Total Protein Albumin Globulin Albumin/Globulin Ratio Urine Color Urine Appearance Urine pH Ur Specific Orla Urine Protein Urine Glucose (UA) Urine Ketones Urine Blood Urine Nitrate Urine Bilirubin Urine Urobilinogen Urine Leukocytes Urine RBC Urine WBC Ur Squamous Epith Cells Amorphous Crystals Ur Culture Indicated? 01/06/17 01/06/17 01/07/17 19:36 22:07 03:00 WBC RBC Hgb Hct MCV MCH MCHC RDW Plt Count MPV Neut % (Auto) Lymph % (Auto) Coles % (Auto) Eos % (Auto) Baso % (Auto) Neut # (Auto) Lymph # (Auto) Coles # (Auto) Eos # (Auto) Baso # (Auto) Immature Gran % Nucleated RBC % Immature Gran # Nucleated RBCs # Immature Plt Fraction INR 1.6 PT Patient/Control Mix 16.9 D Fibrinogen 84 L* Circ Anticoag PTT 34.9 Plt Func Screen - ADP 81 Plt Func Scrn - Epineph 185 H ABG pH 7.247 L ABG pCO2 33.6 L ABG pO2 66.0 L ABG HCO3 14.3 L ABG Total CO2 15.3 L ABG O2 Saturation 91.6 L ABG Base Excess -11.9 L FiO2 21.00 Sodium Potassium Chloride Carbon Dioxide Anion Gap BUN Creatinine GFR Calculation BUN/Creatinine Ratio Glucose Hemoglobin A1c Calculated Osmolality Lactic Acid Calcium Magnesium Total Bilirubin AST ALT Alkaline Phosphatase Ammonia Total Creatine Kinase 371 H CK-MB (CK-2) 5.4 H CK and CKMB Interp 1.5 Troponin I 0.063 H Total Protein Albumin Globulin Albumin/Globulin Ratio Urine Color Urine Appearance Urine pH Ur Specific Orla Urine Protein Urine Glucose (UA) Urine Ketones Urine Blood Urine Nitrate Urine Bilirubin Urine Urobilinogen Urine Leukocytes Urine RBC Urine WBC Ur Squamous Epith Cells Amorphous Crystals Ur Culture Indicated? 01/07/17 01/07/17 03:42 03:42 WBC 14.2 H RBC 3.02 L Hgb 9.5 L Hct 28.6 L MCV 94.7 MCH 32 MCHC 33.2 RDW 17.3 Plt Count 117 L MPV 12.6 H Neut % (Auto) 73.6 Lymph % (Auto) 12.7 L Coles % (Auto) 12.8 H Eos % (Auto) 0.1 Baso % (Auto) 0.2 Neut # (Auto) 10.5 H Lymph # (Auto) 1.8 Coles # (Auto) 1.8 H Eos # (Auto) 0.0 Baso # (Auto) 0.0 Immature Gran % 0.6 Nucleated RBC % 0.0 Immature Gran # 0.08 Nucleated RBCs # 0.00 Immature Plt Fraction 0.0 INR PT Patient/Control Mix Fibrinogen Circ Anticoag PTT Plt Func Screen - ADP Plt Func Scrn - Epineph ABG pH ABG pCO2 ABG pO2 ABG HCO3 ABG Total CO2 ABG O2 Saturation ABG Base Excess FiO2 Sodium 140 Potassium 5.6 H Chloride 113 H Carbon Dioxide 14 L Anion Gap 18.6 H BUN 71 H Creatinine 4.20 H GFR Calculation 13 BUN/Creatinine Ratio 16.00 Glucose 81 Hemoglobin A1c Calculated Osmolality 298.4 Lactic Acid Calcium 8.7 Magnesium Total Bilirubin 1.20 H AST 62 H ALT 17 Alkaline Phosphatase 118 H Ammonia 33 H Total Creatine Kinase CK-MB (CK-2) CK and CKMB Interp Troponin I Total Protein 5.7 L Albumin 2.0 L Globulin 3.7 H Albumin/Globulin Ratio 0.5 L Urine Color Urine Appearance Urine pH Ur Specific Orla Urine Protein Urine Glucose (UA) Urine Ketones Urine Blood Urine Nitrate Urine Bilirubin Urine Urobilinogen Urine Leukocytes Urine RBC Urine WBC Ur Squamous Epith Cells Amorphous Crystals Ur Culture Indicated? - Diagnostic Findings Procedure: Chest x-ray: image reviewed by me, report reviewed by me (opacity in Rt perihilar and basilar region)
[2017-01-07 11:08] LABS: INR 1.5; PT Patient Result 16.2 SECS
--- NOTE | 2017-01-07 12:14 | Nephrology Consult Note ---
History of Present Illness Chief complaint: CKD Stage 3-4 with ? arf component History of present illness: Ms. Castano is a 71 year old female with a history of liver transplant remotely. She takes low-dose Prograf having been told that Prograf caused her stage III chronic kidney disease. She also takes 500 mg of CellCept twice daily. She presented with hypotension and at least a month long history of anorexia. Creatinine is in the range of. She was dosed empirically with vancomycin and thus far has grown enterococcus from her urine which is not a resistant organism but blood cultures are pending. She is seen in the intensive care unit with her . He provides most of the history. Ms. Sanchez is sleepy throughout most of the visit but is easily arousable and pleasant. Chest is clear heart without rub or gallop. She does have considerable peripheral edema and her serum albumin is noted to be approximately 2. Impression chronic renal impairment with a question of acute worsening. 2 years ago here her creatinine was 2.2. She was hospitalized in [place] within the last 2 months and was told that she had abnormal kidney function at that time as well. Liver transplant. Metabolic acidosis Plan I would continue with bicarb to correct her metabolic acidosis. Hopefully she can come off vancomycin before long. Will follow renal function along with you. Home Medications Medication Instructions Recorded Confirmed Type Amitriptyline [Elavil] 100 mg PO QPM 05/05/15 01/06/17 History Aspirin [Ecotrin] 81 mg PO QAM 05/05/15 01/06/17 History Enalapril Maleate 2.5 mg PO QPM 05/05/15 01/06/17 History Tacrolimus Cap [Prograf Cap] 1 mg PO MOWEFR 05/05/15 01/06/17 History Budesonide Neb [Pulmicort Respules] 0.5 mg RESP TX RT BID nebulizer 05/07/15 Rx solution Albuterol Sulfate [Proair HFA] 2 puff INH Q4H PRN 01/06/17 01/06/17 History Albuterol/Ipratropium Neb [Duoneb] 3 ml RESP TX RT Q6H PRN 01/06/17 01/06/17 History Arformoterol Neb [Brovana] 15 mcg RESP TX RT BID 01/06/17 01/06/17 History Ergocalciferol (Vitamin D2) 50,000 unit PO Q3D 01/06/17 01/06/17 History [Vitamin D2] Furosemide Tab [Lasix Tab] 40 mg PO QPM 01/06/17 01/06/17 History Mycophenolate Mofetil Cap 500 mg PO BID 01/06/17 01/06/17 History [Cellcept] Allergies Allergy/AdvReac Type Severity Reaction Status Date / Time morphine Allergy UNCONSCIOUS Verified 05/05/15 21:18 Medical,Surgical,& Family Hx - Medical History Neurology: History of: Migraine (BOTOX INJECTIONS) HEENT: History of: Eye Problem (MACULAR DEGENERATION) Respiratory: History of: Asthma, COPD Renal: History of: Renal Problems (STAGE 3 KIDNEY DISEASE) Gastrointestinal: History of: Liver Problems (LIVER TRANSPLANT 1997) - Surgical History Thoracic Surgeries: Surgical HX of;: Organ Transplant (LIVER 1997) Neurologic Surgeries: Surgical HX of: Neurologic Surgery (STENT IN BRAIN) Abdominal Surgeries: Surgical HX of: Cholecystectomy - Family History Family History: Reports;: Family Heart Disease - Social History Smoking Status: Never smoker Frequency of Alcohol Use: None Type of Drug Use: None Review of Systems 12 point system: reviewed and no additional remarkable complaints except as stated Exam - Vital Signs Vital signs: Period Temp Pulse Resp BP Sys/Hallman Pulse Ox Last 24 Hr 97.8 F-98.7 F 74-104 16-28 78-144/39-83 92-100 - General Appearance General appearance: well-developed, well-nourished, appears started age Neck: no JVD, no thyromegaly, no carotid bruit, supple Respiratory: no kyphosis, no scoliosis Cardiology: no murmurs, no rub, no gallops, no edema, regular rate, regular rhythm, normal S1, normal S2 Gastrointestinal: normoactive bowel sounds Integumentary: no rash, warm and dry Neurologic: no focal deficit, no asterixis, alert and oriented x3, reflexes 2+ and symmetric, gait normal, strength 5/5 Musculoskeletal: no deformities, no erythema, no cyanosis, no clubbing Psychiatric: mood/affect appropriate (Edematous legs), cooperative Results - Labs CBC & BMP: 01/07/17 03:42 01/07/17 03:42 Assessment and Plan - Time spent with patient Time spent with patient: Greater than 30 minutes (1) Chronic renal failure, stage 3 (moderate) Status: Acute Assessment and plan: with ? acute worsening Current Visit: No (2) Metabolic acidosis Status: Acute Assessment and plan: Continue bicarb replacement Current Visit: Yes (3) UTI (urinary tract infection) Status: Acute Assessment and plan: growing Enterococcus Current Visit: No Specialty Discharge - Follow Up or Referrals - Speciality Discharge Instructions Nephrology Instructions: Bicarb as you're doing. Antibiotic. Hopefully can come off Vanc soon.
[2017-01-07] MEDS: PANTOPRAZOLE 40 MG VIAL IV SCH (15:25)
[2017-01-07 16:00] LABS: Calcium 8.3 MG/DL (8.5-10.1); Osmolality,Calculated 299.7 MOS/KG (273-304)
[2017-01-08] MEDS: ALBUTEROL/IPRATROPIUM 3 ML NEB RESP TX SCH ×4 (00:50→20:09)
[2017-01-08] MEDS: NOREPINEPHRINE 8 MG in SODIUM CHLORIDE 0.9% 242 ML IV SCH (05:49)
[2017-01-08] MEDS: MEROPENEM 500 MG in SODIUM CHLORIDE 0.9% 100 ML IV SCH ×2 (05:50→18:35)
[2017-01-08 06:34] LABS: Basophils % 0.2 % (0.0-0.8); Eosinophils # 0.4 10*3/uL (0.0-0.87); Eosinophils % 3.9 % (0.00-10.9); Hematocrit 26.8 VOL% (35.7-47.0); Hemoglobin 9.1 GM/DL (12.0-16.0); Immature Granulocytes % 0.4 %; Immature Granulocytes Absolute 0.05 #; Lymphocytes % 17.3 % (21.3-54.2); Mean Corpuscular Hemoglobin 32 PG (27-34); Mean Corpuscular Volume 92.7 FL (87-102); Mean Platelet Volume 12.5 FL (9.6-12.0); Monocytes # 1.7 10*3/uL (0.11-0.8); Monocytes % 15.3 % (1.7-12.7); NRBC # 0.02 10*3/uL; Neutrophils # 7.1 10*3/uL (1.4-7.4); Neutrophils % 62.9 % (38.7-73.9); Platelet Count 109 T/CUMM (130-400); Red Blood Count 2.89 MC/CUMM (3.8-5.5); Red Cell Distribution Width 17.2 % (9.3-17.3); White Blood Count 11.3 T/CUMM (4-12)
[2017-01-08 06:43] LABS: INR 1.5; PT Patient Result 16.6 SECS
[2017-01-08 07:14] LABS: Albumin 1.9 G/DL (3.4-5.0); Bilirubin,Total 0.6 MG/DL (0.2-1.0); Calcium 8.3 MG/DL (8.5-10.1); Osmolality,Calculated 296.8 MOS/KG (273-304); Potassium 4.8 MMOL/L (3.5-5.1); Total Protein 5.3 G/DL (6.4-8.3)
[2017-01-08] MEDS: BUDESONIDE 0.5 MG/2 ML NEB RESP TX SCH ×2 (07:37→20:09)
[2017-01-08] MEDS: ARFORMOTEROL 15 MCG/2 ML NEB RESP TX SCH ×2 (07:37→20:09)
[2017-01-08] MEDS: MYCOPHENOLATE MOFETIL 250 MG CAPSULE PO SCH ×2 (08:37→22:25)
[2017-01-08] MEDS: ASPIRIN EC 81 MG TABLET PO SCH (08:38)
[2017-01-08] MEDS: LACTULOSE 20 GM/30 ML UDCUP PO SCH ×3 (08:38→22:25)
[2017-01-08] MEDS: ERGOCALCIFEROL 50,000 UNIT CAPSULE PO SCH (08:38)
[2017-01-08] MEDS: SODIUM BICARB INJ 100 MEQ in DEXTROSE 5% 1,000 ML IV SCH ×2 (08:38→18:35)
[2017-01-08] MEDS ORDERED: VANCOMYCIN INJ 1,500 MG in SODIUM CHLORIDE 0.9% 500 ML IV ONE (09:00)
--- NOTE | 2017-01-08 09:11 | Hospitalist Progress Note ---
Assessment and Plan - Time spent with patient Time spent with patient: Greater than 30 minutes (1) Altered mental status Status: Acute Assessment and plan: On vancomycin, Levaquin and meropenem for management of pneumonia, renally dosed. Infectious disease following with antibiotic management. Nephrology following with renal failure, on IV bicarb. Monitor renal function Continue breathing treatment with DuoNeb every 6 hourly. Protonix for GI prophylaxis SCD hose for DVT prophylaxis because of mild thrombocytopenia Transfer to floor today. Current Visit: Yes Qualifiers: Altered mental status type: unspecified Qualified Code(s): R41.82 - Altered mental status, unspecified (2) Fall at home Status: Acute Current Visit: Yes (3) Generalized weakness Status: Acute Current Visit: Yes (4) Metabolic acidosis Status: Acute Current Visit: Yes (5) Renal failure Status: Acute Current Visit: Yes (6) Right lower lobe pneumonia Status: Acute Current Visit: Yes (7) History of COPD Status: Acute Current Visit: No (8) History of liver transplant Status: Acute Current Visit: No Hospitalist: Subjective Interval history: 71-year-old lady with history of liver transplant 2 decades ago and is immunosuppressive medication who was admitted for pneumonia with sepsis/septic shock and altered mental status, acute on chronic kidney injury. This is my first encounter with patient, per records she has been off pressors since the last 24 hours and has remained hemodynamically stable Mental status is back to baseline She is saturating well on nasal cannula oxygen. She tolerates some activity, able to get out of bed. She is tolerating some oral feeds is stable enough for transfer of the ICU. Exam - Constitutional Vitals: Period Temp Pulse Resp BP Sys/Hallman Pulse Ox Last 24 Hr 97.1 F-98.3 F 75-97 14-24 88-136/46-78 92-100 General appearance: no acute distress, morbidly obese - Head Head exam: Present: normal inspection, normocephalic, atraumatic - Eye Eye exam: Absent: periorbital swelling, scleral icterus Pupils: Present: IRAM - Respiratory Respiratory exam: Present: clear to auscultation bilaterally, rhonchi. Absent: accessory muscle use, stridor - Cardiovascular Cardiovascular exam: Present: irregular rhythm. Absent: JVD - GI/Abdominal GI/Abdominal exam: Present: normal bowel sounds, hernia, soft. Absent: tenderness, rebound - Extremities Exam Extremities exam: Present: edema - Neurological Exam Neurological exam: Present: alert, oriented X3 - Psychiatric Psychiatric exam: Present: normal affect - Skin Skin exam: Present: normal color, warm, dry Results - Labs CBC & BMP: 01/08/17 06:18 01/08/17 06:18 Lab Results: I have reviewed the past 24 hour labs Quality Measures - VTE Contraindication to Pharmacological VTE Prophylaxis: Thrombocytopenia
--- NOTE | 2017-01-08 10:25 | Nephrology Progress Note ---
Nephrology - PN: Subj Interval history: She is awake and alert. She denies shortness of breath. She has been oliguric. Exam (PN)-Nephrology - Vital Signs Vital signs: Period Temp Pulse Resp BP Sys/Hallman Pulse Ox Last 24 Hr 97.1 F-98.3 F 75-97 14-24 91-136/46-78 94-100 Exam: Gen.: Alert ENT: Pupils equal round reactive to light. EOMs intact. Mucous membranes moist. Neck: Supple. No JVD or bruit. Cardiovascular: Regular rate and rhythm. No murmur rub or gallop Lungs: Clear Abdomen: Soft. Nontender. Positive bowel sounds. No organomegaly Extremities: No edema - Lab 01/08/17 06:18 01/08/17 06:18 Most recent lab results ABG pH 7.247 (7.35-7.45) L 01/07/17 03:00 ABG pCO2 33.6 MM HG (35-48) L 01/07/17 03:00 ABG pO2 66.0 MM HG (80-95) L 01/07/17 03:00 ABG HCO3 14.3 MMOL/L (20-26) L 01/07/17 03:00 ABG O2 Saturation 91.6 % (95-100) L 01/07/17 03:00 Calcium 8.3 MG/DL (8.5-10.1) L 01/08/17 06:18 Magnesium 2.3 MG/DL (1.8-2.4) 01/06/17 12:30 Assessment and Plan (1) Chronic renal failure, stage 3 (moderate) Status: Acute Assessment and plan: 71-year-old woman with: * CRF 3 * Acute on chronic renal failure * metabolic acidosis. Improved with IV bicarb * UTI * Liver transplant Current Visit: No (2) Generalized weakness Status: Acute Current Visit: Yes (3) Metabolic acidosis Status: Acute Current Visit: Yes (4) History of liver transplant Status: Acute Current Visit: No (5) UTI (urinary tract infection) Status: Acute Current Visit: No
[2017-01-08] MEDS: LEVOFLOXACIN INJ 500 MG in PREMIX 1 EACH IV SCH (11:34)
[2017-01-08] MEDS: PANTOPRAZOLE 40 MG VIAL IV SCH (15:32)
[2017-01-09] MEDS: ALBUTEROL/IPRATROPIUM 3 ML NEB RESP TX SCH ×4 (00:28→19:15)
[2017-01-09] MEDS: MEROPENEM 500 MG in SODIUM CHLORIDE 0.9% 100 ML IV SCH ×2 (05:08→17:56)
[2017-01-09 05:50] LABS: Basophils % 0.2 % (0.0-0.8); Eosinophils # 0.4 10*3/uL (0.0-0.87); Eosinophils % 4.6 % (0.00-10.9); Hematocrit 25.2 VOL% (35.7-47.0); Hemoglobin 8.8 GM/DL (12.0-16.0); Immature Granulocytes % 0.3 %; Immature Granulocytes Absolute 0.03 #; Lymphocytes # 1.8 10*3/uL (1.4-4.0); Lymphocytes % 19.7 % (21.3-54.2); Mean Corpuscular HGB Conc 34.9 GM/DL (32-36); Mean Corpuscular Hemoglobin 31 PG (27-34); Mean Corpuscular Volume 89.7 FL (87-102); Mean Platelet Volume 13.2 FL (9.6-12.0); Monocytes # 1.3 10*3/uL (0.11-0.8); Monocytes % 14.2 % (1.7-12.7); NRBC # 0.02 10*3/uL; Neutrophils # 5.7 10*3/uL (1.4-7.4); Platelet Count 101 T/CUMM (130-400); Red Blood Count 2.81 MC/CUMM (3.8-5.5); Red Cell Distribution Width 16.5 % (9.3-17.3); White Blood Count 9.3 T/CUMM (4-12)
[2017-01-09 06:01] LABS: INR 1.6; PT Patient Result 17.1 SECS
[2017-01-09 06:30] LABS: Albumin 1.8 G/DL (3.4-5.0); Bilirubin,Total 1.1 MG/DL (0.2-1.0); Calcium 8.1 MG/DL (8.5-10.1); Potassium 4.7 MMOL/L (3.5-5.1)
[2017-01-09] MEDS: ARFORMOTEROL 15 MCG/2 ML NEB RESP TX SCH ×2 (07:32→19:15)
[2017-01-09] MEDS: BUDESONIDE 0.5 MG/2 ML NEB RESP TX SCH ×2 (07:33→19:15)
--- NOTE | 2017-01-09 09:00 | Hospitalist Progress Note ---
Assessment and Plan (1) Acute hepatic encephalopathy Status: Acute Assessment and plan: Impression: 1. Hepatic encephalopathy. She has a transplanted liver for unknown indication. She has evidence of hepatic decompensation with asterixis, vascular spiders, and abnormal liver tests, hypoalbuminemia, and prolonged INR 2. Chronic kidney disease with possible acute decompensation. This may be from her immunosuppressive's 3. 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 Possible pneumonia; chest x-ray findings look chronic to me 5. Possible bowel obstruction by examination Plan: X-ray of abdomen. Continue bicarbonate replacement. Follow kidney function, although it appears fairly stagnant. This note was completed using [employer] voice recognition software. There may be hearing officer errors as a result. Current Visit: Yes Hospitalist: Subjective Interval history: Follow-up mental status change, questionable pneumonia, liver transplant status , and chronic kidney disease. The patient was transferred out of the ICU yesterday. She appears to have hepatic encephalopathy. She underwent liver transplant about 20 years ago. She is still confused, and does not know why she had the transplant. She also apparently had a ventriculoperitoneal shunt placed around the same time, and does not know why she has that. She was admitted with pneumonia, but her chest x-ray findings all look chronic to me. After admission, she was found to have a metabolic acidosis. The etiology of this is not known. She is hyperchloremic and hyperkalemic, so this may be a type IV RTA. Exam - Constitutional Vitals: Period Temp Pulse Resp BP Sys/Hallman Pulse Ox Last 24 Hr 97.3 F-98.2 F 63-90 18-20 91-142/44-61 91-100 Vital signs are noted above. Heart is regular with a 3/6 holosystolic murmur at the apex. She has a few rhonchi in the chest. Abdomen is protuberant. She has a golf ball size mass in the right paramedian area that does not appear to be related to a prior incision. Bowel sounds are high-pitched and hyperactive. She is awake and conversant, but confused. She exhibits asterixis. She has a few vascular spiders on the anterior chest. Results - Labs CBC & BMP: 01/09/17 04:46 01/09/17 04:46 Lab Results: I have reviewed the past 24 hour labs Quality Measures - VTE Contraindication to Pharmacological VTE Prophylaxis: Thrombocytopenia
[2017-01-09] MEDS: MYCOPHENOLATE MOFETIL 250 MG CAPSULE PO SCH ×2 (09:13→21:19)
[2017-01-09] MEDS: SODIUM BICARB INJ 100 MEQ in DEXTROSE 5% 1,000 ML IV SCH ×2 (09:13→21:19)
[2017-01-09] MEDS: ASPIRIN EC 81 MG TABLET PO SCH (09:13)
[2017-01-09] MEDS: LACTULOSE 20 GM/30 ML UDCUP PO SCH ×3 (09:13→21:19)
--- NOTE | 2017-01-09 10:31 | XRay Report ---
XR KUB Indication: Abdominal distention. Comparison: None. Technique: Supine AP image of the abdomen was obtained. Findings: Lung bases are clear. There is no evidence of organomegaly. Bowel gas pattern is nonspecific in appearance. Nondistended gas-filled small and large bowel are present with gas noted within the rectum.. Renal contours are bilaterally symmetric. Bones and soft tissues demonstrate no significant abnormalities. Multiple surgical clips remain present within the region of the esophageal hiatus and right upper quadrant. Impression: 1. No specific abnormality of the bowel gas pattern is demonstrated. 01/09/2017 10:27 AM PROCEDURE INTERPRETED AT [facility] DEPARTMENT OF RADIOLOGY Final Report Signed by: Dr. Mohamud Elise
[2017-01-09] MEDS: PANTOPRAZOLE 40 MG VIAL IV SCH (16:39)
--- NOTE | 2017-01-09 21:36 | Nephrology Progress Note ---
Nephrology - PN: Subj Interval history: She denies shortness of breath. Urine output remains low Exam (PN)-Nephrology - Vital Signs Vital signs: Period Temp Pulse Resp BP Sys/Hallman Pulse Ox Last 24 Hr 98.0 F-98.4 F 78-92 18-20 98-118/44-58 89-100 Exam: Gen.: Alert and oriented x3. ENT: Pupils equal round reactive to light. EOMs intact. Mucous membranes moist. Neck: Supple. No JVD or bruit. Cardiovascular: Regular rate and rhythm. No murmur rub or gallop Lungs: Clear Abdomen: Soft. Nontender. Positive bowel sounds. No organomegaly Extremities: No edema - Lab 01/09/17 04:46 01/09/17 04:46 Most recent lab results ABG pH 7.247 (7.35-7.45) L 01/07/17 03:00 ABG pCO2 33.6 MM HG (35-48) L 01/07/17 03:00 ABG pO2 66.0 MM HG (80-95) L 01/07/17 03:00 ABG HCO3 14.3 MMOL/L (20-26) L 01/07/17 03:00 ABG O2 Saturation 91.6 % (95-100) L 01/07/17 03:00 Calcium 8.1 MG/DL (8.5-10.1) L 01/09/17 04:46 Magnesium 2.3 MG/DL (1.8-2.4) 01/06/17 12:30 Assessment and Plan (1) Chronic renal failure, stage 3 (moderate) Status: Acute Assessment and plan: 71-year-old woman with: * CRF 3 * Acute on chronic renal failure. Creatinine is unchanged. She remains oliguric * metabolic acidosis. Improved with IV bicarb * UTI * Liver transplant Current Visit: No (2) Generalized weakness Status: Acute Current Visit: Yes (3) Metabolic acidosis Status: Acute Current Visit: Yes (4) History of liver transplant Status: Acute Current Visit: No (5) UTI (urinary tract infection) Status: Acute Current Visit: No
[2017-01-10] MEDS: ALBUTEROL/IPRATROPIUM 3 ML NEB RESP TX SCH ×4 (00:01→19:38)
[2017-01-10] MEDS: SODIUM BICARB INJ 100 MEQ in DEXTROSE 5% 1,000 ML IV SCH ×3 (04:51→21:39)
[2017-01-10] MEDS: MEROPENEM 500 MG in SODIUM CHLORIDE 0.9% 100 ML IV SCH ×2 (06:00→18:25)
[2017-01-10 06:08] LABS: Basophils % 0.2 % (0.0-0.8); Eosinophils # 0.4 10*3/uL (0.0-0.87); Eosinophils % 4.2 % (0.00-10.9); Hematocrit 25.3 VOL% (35.7-47.0); Hemoglobin 8.9 GM/DL (12.0-16.0); Immature Granulocytes % 0.4 %; Immature Granulocytes Absolute 0.03 #; Lymphocytes # 1.8 10*3/uL (1.4-4.0); Lymphocytes % 21.8 % (21.3-54.2); Mean Corpuscular HGB Conc 35.2 GM/DL (32-36); Mean Corpuscular Hemoglobin 32 PG (27-34); Mean Corpuscular Volume 89.7 FL (87-102); Mean Platelet Volume 13.1 FL (9.6-12.0); Monocytes # 1.1 10*3/uL (0.11-0.8); Monocytes % 13.5 % (1.7-12.7); Neutrophils # 4.9 10*3/uL (1.4-7.4); Neutrophils % 59.9 % (38.7-73.9); Platelet Count 102 T/CUMM (130-400); Red Blood Count 2.82 MC/CUMM (3.8-5.5); Red Cell Distribution Width 16.5 % (9.3-17.3); White Blood Count 8.3 T/CUMM (4-12)
[2017-01-10 06:23] LABS: INR 1.5; PT Patient Result 16.7 SECS
[2017-01-10 06:43] LABS: Albumin 1.8 G/DL (3.4-5.0); Bilirubin,Total 1.1 MG/DL (0.2-1.0); Calcium 8.2 MG/DL (8.5-10.1); Potassium 4.6 MMOL/L (3.5-5.1)
[2017-01-10] MEDS: ARFORMOTEROL 15 MCG/2 ML NEB RESP TX SCH ×2 (07:34→19:38)
[2017-01-10] MEDS: BUDESONIDE 0.5 MG/2 ML NEB RESP TX SCH ×2 (07:34→19:38)
--- NOTE | 2017-01-10 08:44 | Gastrointestinal Progress Note ---
Assessment and Plan (1) Altered mental status Status: Acute Assessment and plan: 01/10-patient with multiple bowel movements on yesterday, no ammonia level noted today. Fairly well oriented. Creatinine elevated at 4.8. Repeat ammonia level today. Poor oral intake. Further plan an addendum to follow by Dr. Naqvi 01/07-Sudden onset of confusion with history of liver disease and transplant 20 years ago. Mildly elevated ammonia level on admission at 39, down to 33, no bowel movements at this time. Reports of recent decline in oral intake over last several days. Reports of vague abdominal pain with eating. Continue to monitor oral intake at this time with consideration for possible tube feedings if necessary. Plan and addendum to follow by Dr Naqvi. Current Visit: Yes Qualifiers: Altered mental status type: unspecified Qualified Code(s): R41.82 - Altered mental status, unspecified Gastroenterology - PN: Subj Interval history: CC: Encephalopathy Patient is seen, awake and fairly well oriented with spouse at bedside. She is denies any pain or discomfort at this time however she appears somewhat unsettled. Patient's spouse states that she has had multiple bowel movements throughout yesterday and these have slowed off as of today. Her ammonia level on yesterday was noted to be elevated at 128 however has not been repeated today. Creatinine remains elevated as well at 4.8. Urine output is noted to be marginal at this time. INR is 1.5. Abdomen is soft, tympanic, nontender. She has been eating minimally with poor appetite at this time per spouse. KUB was done on yesterday due to abdominal distention with no acute findings noted at that time. ROS: Denies SOB or chest pain Exam (Progress Note) - Constitutional Vitals: Period Temp Pulse Resp BP Sys/Hallman Pulse Ox Last 24 Hr 97.4 F-98.4 F 74-91 18-20 101-118/53-64 89-100 General appearance: normal weight, no acute distress - Head Head exam: Present: normal inspection, normocephalic - Eye Eye exam: Present: other (Lids and conjunctive are normal). Absent: scleral icterus - ENT ENT exam: Present: normal exam, normal oropharynx - Neck Neck exam: Present: normal inspection - Respiratory Respiratory exam: Present: clear to auscultation bilaterally. Absent: rales, rhonchi, wheezes - Cardiovascular Cardiovascular exam: Present: regular rate and rhythm. Absent: diastolic murmur , JVD, systolic murmur - GI/Abdominal GI/Abdominal exam: Present: normal bowel sounds, distended, soft. Absent: ascites, mass, organomegaly, tenderness - Extremities Exam Extremities exam: Present: normal inspection, full ROM - Back Exam Back exam: Present: normal inspection - Neurological Exam Neurological exam: Present: alert, oriented X3 - Psychiatric Psychiatric exam: Present: normal affect, normal mood - Skin Skin exam: Present: normal color, warm, dry Results - Labs CBC & BMP: 01/10/17 04:55 01/10/17 04:55 Lab Results: I have reviewed the past 24 hour labs
[2017-01-10] MEDS: ASPIRIN EC 81 MG TABLET PO SCH (09:13)
[2017-01-10] MEDS: MYCOPHENOLATE MOFETIL 250 MG CAPSULE PO SCH ×2 (09:13→20:37)
[2017-01-10] MEDS: LACTULOSE 20 GM/30 ML UDCUP PO SCH ×3 (09:13→20:37)
[2017-01-10] MEDS: TACROLIMUS 0.5 MG CAPSULE PO SCH (09:13)
--- NOTE | 2017-01-10 09:46 | Nephrology Progress Note ---
Nephrology - PN: Subj Interval history: Ms. Sanchez is seen in follow-up of her acute superimposed on chronic renal impairment. Her serum creatinine is up to 4.8 from 4.2 on Tuesday. Her metabolic acidosis has been corrected with a serum bicarbonate of 22. She continues to have significant edema and is oliguric. Will check urine studies and will discontinue vancomycin since cultures thus far been negative and he would be good to discontinue that if not absolutely necessary. She is breathing comfortably she is easily arousable and is friendly. Serum ammonia remains elevated. Exam (PN)-Nephrology - Vital Signs Vital signs: Period Temp Pulse Resp BP Sys/Hallman Pulse Ox Last 24 Hr 97.4 F-98.4 F 74-91 18-20 101-118/53-64 89-100 - Lab 01/10/17 04:55 01/10/17 04:55 Most recent lab results ABG pH 7.247 (7.35-7.45) L 01/07/17 03:00 ABG pCO2 33.6 MM HG (35-48) L 01/07/17 03:00 ABG pO2 66.0 MM HG (80-95) L 01/07/17 03:00 ABG HCO3 14.3 MMOL/L (20-26) L 01/07/17 03:00 ABG O2 Saturation 91.6 % (95-100) L 01/07/17 03:00 Calcium 8.2 MG/DL (8.5-10.1) L 01/10/17 04:55 Magnesium 2.3 MG/DL (1.8-2.4) 01/06/17 12:30 Assessment and Plan (1) Chronic renal failure, stage 3 (moderate) Status: Acute Assessment and plan: with ? acute worsening Current Visit: No (2) Metabolic acidosis Status: Acute Assessment and plan: Continue bicarb replacement Current Visit: Yes (3) UTI (urinary tract infection) Status: Acute Assessment and plan: growing Enterococcus Current Visit: No
[2017-01-10] MEDS: LEVOFLOXACIN INJ 500 MG in PREMIX 1 EACH IV SCH (11:42)
--- NOTE | 2017-01-10 12:26 | Infectious Disease Progress ---
Assessment and Plan (1) Altered mental status Status: Acute Assessment and plan: Probably from hepatic encephalopathy. She is pending transferred to [facility] for further evaluation based on her transplanted liver. Current Visit: Yes Qualifiers: Altered mental status type: unspecified Qualified Code(s): R41.82 - Altered mental status, unspecified (2) Renal failure Status: Acute Assessment and plan: Commensurately worse. Vancomycin has been stopped today. Current Visit: Yes (3) Right lower lobe pneumonia Status: Acute Assessment and plan: Not very symptomatic. She has been on broad-spectrum antibiotics and and I would complete 5 days empiric course of the meropenem and levofloxacin. Discussed with at bedside Discussed with Dr. Sagastume Current Visit: Yes Infectious Disease - PN: Subj Interval history: Patient much better than last week, particularly when terms of her mental status which has been a bit depressed. [place] due to elevated ammonia levels. She has not any fever. She has been out of ICU since a few days ago. She has been accepted to [facility] today. Infectious Disease Exam (PN) - Constitutional Vitals: Temp Pulse Resp BP Pulse Ox 97.6 F 86 18 109/61 89 L 01/10/17 08:00 01/10/17 08:00 01/10/17 08:58 01/10/17 08:00 01/10/17 08:00 General appearance: normal weight, no acute distress Exam: General appearance: Rather drowsy though she is arousable, seemed to be confused was not really communicating spontaneously - Eye Eye exam: Present: EOMI. no icterus Pupils: Present: IRAM - ENT ENT exam: no oral exudates - Respiratory Respiratory exam: vesicular BS, no crepitations or wheezes - Cardiovascular Cardiovascular exam: regular rate and rhythm, no murmurs - GI/Abdominal GI/Abdominal exam: normal bowel sounds, soft, non-tender, no organomegaly or mass - Extremities Exam Extremities exam: Bilateral lower extremity edema - Skin Skin exam: no rash Results - Labs CBC & BMP: 01/10/17 04:55 01/10/17 04:55 Lab Results: I have reviewed the past 24 hour labs (Blood cultures negative at day 3, urine cultures were also negative) Quality Measures - VTE Contraindication to Pharmacological VTE Prophylaxis: Thrombocytopenia
--- NOTE | 2017-01-10 13:42 | Discharge Summary ---
Hospital Course - Hospital Course Hospital Course: Mrs Castano presented with fever, tachycardia, PATY on CKD, and elevated ammonia with lactic acid over 2 and hypotension with RLL pneumonia. She was treated for sepsis with IVF resuscitation and required levophed for a short time. She has been oout of the ICU for several days but her renal failure and liver failure has gotten worse. She had transplant about 20 years ago and her bonding and composite fabricator thought she may be developing cirrhosis again. Her ammonia is 128, INR 1.5, albumin 1.8 today. She has asterixis. THis is despite routine lactulose during this admission. Her creatinine is now 4.8 and she has very little UOP. She has been afebrile. She was treated with broad spectrum antibiotics due to being immunosuppressed, but today her cultures remain negative so the Vanc will be stopped (random dosing based on levels) but will continue the levaquin and Merrem. She has been accepted to [facility]'s hepatology service by Dr Fonseca today and he expects them to have a bed today or tomorrow. I have discussed this with her . The patient is not able to sustain her attention long enough to participate in conversation today. - Time spent with patient Time with patient DS: Greater than 30 minutes (55 minutes to arrange transfer to [facility], medicine reconciliation, documentation) Diagnosis - Discharge Diagnosis (1) Right lower lobe pneumonia Status: Acute (2) History of liver transplant Status: Chronic (3) Chronic renal failure, stage 3 (moderate) Status: Chronic (4) Generalized weakness Status: Acute (5) Fall at home Status: Acute (6) Altered mental status Status: Acute (7) Renal failure Status: Acute (8) Immunosuppressed status Status: Acute (9) Hepatic encephalopathy Status: Acute Discharge Plan - Discharge Data Disposition: Disch/Xfer-[facility] Condition at Discharge: Guarded - Discharge Medications New Albuterol Neb [Proventil Neb] 2.5 mg RESP TX RT Q1H PRN PRN Reason: Shortness Of Breath/Wheezing Lactulose Liquid [Chronulac] 20 gm PO Q6H Meropenem [Merrem] 500 mg IV Q12H vial Mycophenolate Mofetil Cap [Cellcept] 500 mg PO BID capsule Pantoprazole Inj [Protonix Inj] 40 mg IV Q24H vial Rifaximin [Xifaxan] 225 mg PO TID tablet Sodium Bicarb Inj 100 meq IV .Q11H vial Levofloxacin Inj [Levaquin Inj] 500 mg IV Q48H Ondansetron Inj [Zofran Inj] 4 mg IV Q4H PRN vial PRN Reason: Nausea Continue Enalapril Maleate 2.5 mg PO QPM Tacrolimus Cap [Prograf Cap] 1 mg PO MOWEFR Aspirin [Ecotrin] 81 mg PO QAM Budesonide Neb [Pulmicort Respules] 0.5 mg RESP TX RT BID nebulizer solution Albuterol/Ipratropium Neb [Duoneb] 3 ml RESP TX RT Q6H PRN PRN Reason: Shortness Of Breath/Wheezing Arformoterol Neb [Brovana] 15 mcg RESP TX RT BID Ergocalciferol (Vitamin D2) [Vitamin D2] 50,000 unit PO Q3D Discontinued Amitriptyline [Elavil] 100 mg PO QPM Furosemide Tab [Lasix Tab] 40 mg PO QPM Albuterol Sulfate [Proair HFA] 2 puff INH Q4H PRN PRN Reason: Shortness Of Breath/Wheezing Mycophenolate Mofetil Cap [Cellcept] 500 mg PO BID - Follow Up or Referral - Forms/Instructions Exam - Constitutional Vitals: Period Temp Pulse Resp BP Sys/Hallman Pulse Ox Last 24 Hr 97.4 F-98.0 F 74-91 18-20 101-120/53-68 89-100 General appearance: mild distress, morbidly obese - Eye Eye exam: Present: EOMI. Absent: scleral icterus - Respiratory Respiratory exam: Present: clear to auscultation bilaterally - Cardiovascular Cardiovascular exam: Present: regular rate and rhythm - GI/Abdominal GI/Abdominal exam: Present: normal bowel sounds, distended, soft. Absent: tenderness - Extremities Exam Extremities exam: Present: edema (3+anasarca) - Neurological Exam Neurological exam: Present: altered, CN II-XII intact, other (responds to voice , but drifts back to sleep after she answers. Does not initiate conversation. asterixis present). Absent: motor sensory deficit - Skin Skin exam: Present: warm, dry Discharge Results Procedures and tests throughout hospitalization: Pending Orders 01/06/17 14:45 Blood Culture Stat 01/11/17 04:00 Comprehensive Metabolic Panel IN AM Tacrolimus (Prograf) IN AM Labs on day of discharge: Labs from last 24 hours 01/10/17 01/10/17 01/10/17 10:00 10:00 08:50 WBC RBC Hgb Hct MCV MCH MCHC RDW Plt Count MPV Neut % (Auto) Lymph % (Auto) [place] % (Auto) Eos % (Auto) Baso % (Auto) Neut # (Auto) Lymph # (Auto) [place] # (Auto) Eos # (Auto) Baso # (Auto) Immature Gran % Nucleated RBC % Immature Gran # Nucleated RBCs # Immature Plt Fraction INR PT Patient/Control Mix Sodium Potassium Chloride Carbon Dioxide Anion Gap BUN Creatinine GFR Calculation BUN/Creatinine Ratio Glucose Calculated Osmolality Calcium Total Bilirubin AST ALT Alkaline Phosphatase Ammonia 111 H Total Creatine Kinase CK-MB (CK-2) Troponin I Total Protein Albumin Globulin Albumin/Globulin Ratio Ur Random Creatinine 273 Ur Random Sodium 9.0 01/10/17 01/10/17 01/10/17 04:55 04:55 04:55 WBC 8.3 RBC 2.82 L Hgb 8.9 L Hct 25.3 L MCV 89.7 MCH 32 MCHC 35.2 RDW 16.5 Plt Count 102 L MPV 13.1 H Neut % (Auto) 59.9 Lymph % (Auto) 21.8 [place] % (Auto) 13.5 H Eos % (Auto) 4.2 Baso % (Auto) 0.2 Neut # (Auto) 4.9 Lymph # (Auto) 1.8 [place] # (Auto) 1.1 H Eos # (Auto) 0.4 Baso # (Auto) 0.0 Immature Gran % 0.4 Nucleated RBC % 0.0 Immature Gran # 0.03 Nucleated RBCs # 0.00 Immature Plt Fraction 0.0 INR PT Patient/Control Mix Sodium 136 Potassium 4.6 Chloride 104 Carbon Dioxide 22 Anion Gap 14.6 BUN 76 H Creatinine 4.80 H GFR Calculation 11 BUN/Creatinine Ratio 15.00 Glucose 120 H Calculated Osmolality 295.0 Calcium 8.2 L Total Bilirubin 1.10 H AST 69 H ALT 27 Alkaline Phosphatase 148 H Ammonia Total Creatine Kinase 64 D CK-MB (CK-2) 1.4 Troponin I 0.040 Total Protein 5.0 L Albumin 1.8 L Globulin 3.2 Albumin/Globulin Ratio 0.5 L Ur Random Creatinine Ur Random Sodium 01/10/17 04:55 WBC RBC Hgb Hct MCV MCH MCHC RDW Plt Count MPV Neut % (Auto) Lymph % (Auto) [place] % (Auto) Eos % (Auto) Baso % (Auto) Neut # (Auto) Lymph # (Auto) [place] # (Auto) Eos # (Auto) Baso # (Auto) Immature Gran % Nucleated RBC % Immature Gran # Nucleated RBCs # Immature Plt Fraction INR 1.5 PT Patient/Control Mix 16.7 Sodium Potassium Chloride Carbon Dioxide Anion Gap BUN Creatinine GFR Calculation BUN/Creatinine Ratio Glucose Calculated Osmolality Calcium Total Bilirubin AST ALT Alkaline Phosphatase Ammonia Total Creatine Kinase CK-MB (CK-2) Troponin I Total Protein Albumin Globulin Albumin/Globulin Ratio Ur Random Creatinine Ur Random Sodium Preliminary micro results at discharge 01/06/17 14:45 Blood Culture - Preliminary Blood No growth at 3 days 01/06/17 14:45 Blood Culture - Preliminary Blood No growth at 3 days DS: Provider Date of admission: 01/06/17 15:58 Primary care physician: . No PCP Attending physician on admission: Kasandra Sagastume MD Consults: 01/06/17 16:02 Consult to Physician [CONS] Routine Comment: liver transplant Consulting Provider: Matthew Naqvi 01/06/17 16:03 Consult to Physician [CONS] Routine Comment: Consulting Provider: Edmond Carroll Consulting Provider Notified: Yes Consult to Specialist Group: Nephrology When should Consulting Provider be notified: In am Person Notified: tracey Date Notified: 01/07/17 Time Notified: 08:25 Consult to Physician [CONS] Routine Comment: immunosuppressed, sepsis Consulting Provider: Cass Neville 01/07/17 07:00 Consult to Dietitian [CONS] Routine Reason for Dietitian: Other Consult Comment: NOT EATING WELL Discharging clinician: Kasandra Sagastume MD
[2017-01-10] MEDS ORDERED: RIFAXIMIN 550 MG TABLET PO SCH (15:00)
[2017-01-10] MEDS: PANTOPRAZOLE 40 MG VIAL IV SCH (17:06)
[2017-01-10] MEDS: RIFAXIMIN 550 MG TABLET PO SCH (20:36)
[2017-01-11] MEDS: ALBUTEROL/IPRATROPIUM 3 ML NEB RESP TX SCH ×2 (00:03→07:36)
[2017-01-11] MEDS: LACTULOSE 20 GM/30 ML UDCUP PO SCH ×2 (02:06→12:12)
[2017-01-11] MEDS: MEROPENEM 500 MG in SODIUM CHLORIDE 0.9% 100 ML IV SCH (05:40)
[2017-01-11 07:28] LABS: Albumin 1.7 G/DL (3.4-5.0); Bilirubin,Total 1.1 MG/DL (0.2-1.0); Calcium 7.9 MG/DL (8.5-10.1); Osmolality,Calculated 291.2 MOS/KG (273-304); Potassium 4.9 MMOL/L (3.5-5.1); Total Protein 5.3 G/DL (6.4-8.3)
[2017-01-11] MEDS: ARFORMOTEROL 15 MCG/2 ML NEB RESP TX SCH (07:34)
[2017-01-11] MEDS: BUDESONIDE 0.5 MG/2 ML NEB RESP TX SCH (07:36)
--- NOTE | 2017-01-11 08:49 | Gastrointestinal Progress Note ---
Assessment and Plan (1) Altered mental status Status: Acute Assessment and plan: 01/11-continued bowel movements, ammonia at 111. Creatinine unchanged. Continued poor intake. Transfer to [facility] pending at present time. Plan an addendum followed by Dr. Naqvi 01/10-patient with multiple bowel movements on yesterday, no ammonia level noted today. Fairly well oriented. Creatinine elevated at 4.8. Repeat ammonia level today. Poor oral intake. Further plan an addendum to follow by Dr. Naqvi 01/07-Sudden onset of confusion with history of liver disease and transplant 20 years ago. Mildly elevated ammonia level on admission at 39, down to 33, no bowel movements at this time. Reports of recent decline in oral intake over last several days. Reports of vague abdominal pain with eating. Continue to monitor oral intake at this time with consideration for possible tube feedings if necessary. Plan and addendum to follow by Dr Naqvi. Current Visit: Yes Qualifiers: Altered mental status type: unspecified Qualified Code(s): R41.82 - Altered mental status, unspecified Gastroenterology - PN: Subj Interval history: CC: Encephalopathy Patient is seen, little more awake and alert with spouse at bedside. She was up and down most of the night with bowel movements related to the lactulose. She denies any pain, nausea or vomiting at this time. She is noted to currently be waiting on a bed for transfer to [facility]. No word as of this morning regarding the timeframe for this. Creatinine remains elevated at 4.8. Ammonia was down slightly at 111. Abdomen is soft, nontender. She continues with some mild asterixis. ROS: Denies shortness of breath or chest pain Exam (Progress Note) - Constitutional Vitals: Period Temp Pulse Resp BP Sys/Hallman Pulse Ox Last 24 Hr 97.7 F-98.9 F 83-95 16-22 118-130/57-76 90-99 - Other Additional findings: General appearance: normal weight, no acute distress - Head Head exam: Present: normal inspection, normocephalic - Eye Eye exam: Present: other (Lids and conjunctive are normal). Absent: scleral icterus - ENT ENT exam: Present: normal exam, normal oropharynx - Neck Neck exam: Present: normal inspection - Respiratory Respiratory exam: Present: clear to auscultation bilaterally. Absent: rales, rhonchi, wheezes - Cardiovascular Cardiovascular exam: Present: regular rate and rhythm. Absent: diastolic murmur , JVD, systolic murmur - GI/Abdominal GI/Abdominal exam: Present: normal bowel sounds, distended, soft. Absent: ascites, mass, organomegaly, tenderness - Extremities Exam Extremities exam: Present: normal inspection, full ROM - Back Exam Back exam: Present: normal inspection - Neurological Exam Neurological exam: Present: alert, oriented X3 - Psychiatric Psychiatric exam: Present: normal affect, normal mood - Skin Skin exam: Present: normal color, warm, dry Results - Labs CBC & BMP: 01/10/17 04:55 01/11/17 06:04 Lab Results: I have reviewed the past 24 hour labs
--- NOTE | 2017-01-11 09:39 | XRay Report ---
KUB. Indication: Nausea and vomiting. Comparison: January 09, 2017. The diaphragms are clipped from this exam. Surgical clips are noted in the upper abdomen. There is gaseous distention of small and large intestine, with gas extending to the rectum. This is most suggestive of an ileus. There are numerous calcifications in the left upper quadrant. These could lie within the urinary tract, or be within vasculature or represent calcified lymph nodes. There is a single calcification projecting over the right renal outline. The osseous structures are diffusely demineralized and degenerative changes are present. Impression: Worsening nonspecific gaseous distention of bowel, without definite evidence of obstruction. Limited study not including the diaphragms. Possible nephrolithiasis. PROCEDURE INTERPRETED AT [facility] DEPARTMENT OF RADIOLOGY Final Report Signed by: Dr. Pia Paz
--- NOTE | 2017-01-11 09:49 | Hospitalist Progress Note ---
Assessment and Plan (1) Right lower lobe pneumonia Status: Acute Assessment and plan: 1)RLL pneumonia- on vanc and merrem. Sats good and breathing comfortably. 2)sepsis- received IVF and BP ok on small amount of levophed. wean levophed off. BCx negative so far. 3)PATY on CKD stage 3- last outpatient creatinine was 3.3. Now creatinine 4.8 for second day, perhaps it has peaked and will begin to come down. 4)s/p liver failure with subsequent tranplant- may be developing cirrhosis in new liver. ammonia remains elevated, albumin low, ascites increase. Now with ileus on KUB, and no BM last night. VOmited the oral lactulose last night. Begin lactulose enemas. Place NGT. On immunosuppressants as she was prior to admission. Dr Naqvi following. 5)fall at home- weak. 6)metabolic acidosis- adding bicarb to IVF 7)COPD- compensated. 8)transfer to [facility] pending. Current Visit: Yes (2) History of liver transplant Status: Chronic Current Visit: No (3) Chronic renal failure, stage 3 (moderate) Status: Chronic Current Visit: No (4) Generalized weakness Status: Acute Current Visit: Yes (5) Fall at home Status: Acute Current Visit: Yes (6) Altered mental status Status: Acute Current Visit: Yes Qualifiers: Altered mental status type: unspecified Qualified Code(s): R41.82 - Altered mental status, unspecified (7) Renal failure Status: Acute Current Visit: Yes (8) Immunosuppressed status Status: Acute Current Visit: Yes (9) Hepatic encephalopathy Status: Acute Current Visit: Yes Hospitalist: Subjective Interval history: Patient not discharged yesterday bc we are waiting for bed availability at [facility]. She vomited last night. Denies pain or shortness of breath. KUB this am shows increased bowel distention. CXR with R effusion, prominent pulmonary vasculature by my reading. Place NGT to LIS. Begin lactulose enemas. No BMs last night, ammonia increasing. Exam - Constitutional Vitals: Period Temp Pulse Resp BP Sys/Hallman Pulse Ox Last 24 Hr 97.7 F-98.9 F 83-95 16-22 118-130/57-76 90-99 General appearance: no acute distress, morbidly obese - Eye Eye exam: Present: EOMI. Absent: scleral icterus - Respiratory Respiratory exam: Present: rales (a few rales at both bases) - Cardiovascular Cardiovascular exam: Present: regular rate and rhythm - GI/Abdominal GI/Abdominal exam: Present: distended, hypoactive bowel sounds. Absent: tenderness - Extremities Exam Extremities exam: Present: edema (unchanged 3+ dependent edema) - Neurological Exam Neurological exam: Present: alert. Absent: oriented X3 (asterixis) - Skin Skin exam: Present: warm, dry Results - Labs CBC & BMP: 01/10/17 04:55 01/11/17 06:04 Lab Results: I have reviewed the past 24 hour labs Quality Measures - VTE Contraindication to Pharmacological VTE Prophylaxis: Thrombocytopenia
[2017-01-11] MEDS: SODIUM BICARB INJ 100 MEQ in DEXTROSE 5% 1,000 ML IV SCH ×2 (10:54→12:52)
[2017-01-11] MEDS: ERGOCALCIFEROL 50,000 UNIT CAPSULE PO SCH (10:54)
[2017-01-11] MEDS: MYCOPHENOLATE MOFETIL 250 MG CAPSULE PO SCH (10:54)
[2017-01-11] MEDS: ASPIRIN EC 81 MG TABLET PO SCH (10:54)
[2017-01-11] MEDS: RIFAXIMIN 550 MG TABLET PO SCH (10:54)
[2017-01-11 11:13] VITALS: BP 124/66
--- NOTE | 2017-01-11 11:49 | XRay Report ---
XR chest 1V portable Indication: NG tube placement Comparison: No relevant comparison. Technique: Frontal view of the chest and upper abdomen specifically for enteric tube placement. Findings: Nonweighted enteric tube tip projects over the mid stomach. IMPRESSION: As above. PROCEDURE INTERPRETED AT [facility] DEPARTMENT OF RADIOLOGY Final Report Signed by: Dr Mark Green
--- NOTE | 2017-01-11 11:56 | Nephrology Progress Note ---
Nephrology - PN: Subj Interval history: Ms. Sanchez is seen in follow-up of her acute renal failure superimposed on chronic renal failure. Her creatinine today is stable at 4.8 electrolytes are unremarkable with a measured bicarb of 24. Plans are underway for transfer to [facility]. Her urine sodium yesterday was 9 compatible with hepatorenal syndrome or prerenal picture. She is not volume depleted. Agree with transfer and thanks for allowing us to participate in her care. Exam (PN)-Nephrology - Vital Signs Vital signs: Period Temp Pulse Resp BP Sys/Hallman Pulse Ox Last 24 Hr 97.7 F-98.9 F 83-95 16-22 118-130/57-76 90-99 - Lab 01/10/17 04:55 01/11/17 06:04 Most recent lab results ABG pH 7.247 (7.35-7.45) L 01/07/17 03:00 ABG pCO2 33.6 MM HG (35-48) L 01/07/17 03:00 ABG pO2 66.0 MM HG (80-95) L 01/07/17 03:00 ABG HCO3 14.3 MMOL/L (20-26) L 01/07/17 03:00 ABG O2 Saturation 91.6 % (95-100) L 01/07/17 03:00 Calcium 7.9 MG/DL (8.5-10.1) L 01/11/17 06:04 Magnesium 2.3 MG/DL (1.8-2.4) 01/06/17 12:30 Assessment and Plan (1) Chronic renal failure, stage 3 (moderate) Status: Chronic Assessment and plan: with ? acute worsening Current Visit: No (2) Metabolic acidosis Status: Acute Assessment and plan: Continue bicarb replacement Current Visit: Yes (3) UTI (urinary tract infection) Status: Acute Assessment and plan: growing Enterococcus Current Visit: No
--- NOTE | 2017-01-11 12:12 | XRay Report ---
XR chest 1V Indication: Cough, congestion Comparison: Chest x-ray dated January 07, 2017 Technique: Single frontal view of the chest. Findings: Continued cardiomegaly. Presumed ventriculostomy catheter again projects over the right neck and chest. Continued small left pleural effusion and small layering right pleural fluid. Mildly increased patchy opacification within the bilateral perihilar region suggesting worsened pulmonary edema or pneumonia. Visualized osseous and surrounding soft tissue structures appear grossly unchanged. IMPRESSION: As above. PROCEDURE INTERPRETED AT [facility] DEPARTMENT OF RADIOLOGY Final Report Signed by: Dr Mark Green
[2017-01-11] MEDS ORDERED: LACTULOSE 160 GM/240 ML BOTTLE RECTAL SCH (15:00)
== END 2017-01-11 14:00 | disposition hospice, home (50) | DRG 871 ==
LOC: EDUNIT# → EDBD → N.ED 12:08 → N.EDINP 15:58 → SUATTDRO 15:58 → N.ICU 16:33 → N.5E 01-08 11:11
PROVIDERS: ADMIT Internal Medicine; ATTEND Internal Medicine